=== PATIENT | male | born 1980 | race Caucasian/White ===

== ENCOUNTER 2021-06-09 18:55 | Emergency (ER) | payer BC, SELFPAY ==
[2021-06-09 18:56] VITALS: BP 144/89; PULSE 110; RESP 18; TEMP 37.1; O2SAT 94; BMI 30.8
--- NOTE | 2021-06-09 20:30 | EKG12_ITS ---
Test Reason : DYSRYTHMIA Blood Pressure : / mmHG Vent. Rate : 096 BPM Atrial Rate : 096 BPM P-R Int : 152 ms QRS Dur : 090 ms QT Int : 334 ms P-R-T Axes : 035 -16 015 degrees QTc Int : 421 ms Normal sinus rhythm Normal ECG Confirmed by IDANIA CARPIO, ALICIA ([id number]), editor sound BRENDA JIMENEZ ([id number]) on 06/13/2021 9:58:20 AM Referred By: VANESA Confirmed By:ALICIA EMERSON MD
--- NOTE | 2021-06-09 21:00 | RAD_ITS ---
STUDY: X-RAY CHEST REASON FOR EXAM: Male, 41 years old. sob TECHNIQUE: AP COMPARISON: None. FINDINGS: There are patchy parenchymal opacities predominantly in the central lungs with some extension into the right upper lobe and left lower lobe. There is no demonstrated pleural abnormality. Normal size heart. Normal mediastinum and bernarda. Normal visualized pulmonary arteries. Normal visualized aortic arch and descending thoracic aorta. Normal visualized thoracic spine. Normal visualized ribs, clavicles, and shoulders. There is no demonstrated abnormality of the visualized soft tissue structures of the upper abdomen. RAD/Chest 1 View (Portable) IMPRESSION: Bilateral perihilar infiltrates suggesting pneumonia Electronically Signed: Figueroa Lewis MD (Brooks) at 22:19 EDT , Service support ,
[2021-06-09 21:01] LABS: Absolute Lymphocyte Count 1.75 X10^3/uL (0.83-4.51); Absolute Neutrophil Count 3.4 X10^3/uL (2.0-7.7); Basophil# 0.02 X10^3/uL; Basophil% 0.4 % (0-1); Hematocrit 45.6 % (40-54); Hemoglobin 14.9 g/dL (13.0-16.5); Lymphocyte # 1.75 X10^3/ul (0.83-4.51); Mean Corp Hgb Conc 32.7 g/dL (32-36); Mean Corpuscular Hgb 27.3 pg (27.0-32.0); Mean Corpuscular Volume 83.7 fL (80-94); Mean Platelet Vol. 9.5 fl (6.2-12.0); Monocyte# 0.33 X10^3/uL; NRBC Flagged by Analyzer 0 % (0-5); Neutrophil # 3.36 X10^3/uL (2.7-7.7); Neutrophil % 61.4 % (47-70); Platelet Count 185 K/mm3 (150-450); RBC Distribution Width SD 39.7 fl (35.1-43.9); Red Blood Count 5.45 M/mm3 (4.6-6.2); White Blood Count 5.5 K/mm3 (4.4-11.0)
[2021-06-09 21:19] LABS: Anion Gap 5 (5-15); BUN 10 mg/dL (7-18); Calcium,Total 8.5 mg/dL (8.5-10.1); Chloride 106 mmol/L (98-107); Creatinine, Serum 0.91 mg/dL (0.70-1.30); EST Glomerular Filtration Rate 98 mL/min (>60); Est Glom Filt Rate - Afr Amer 119 mL/min (>60); Estimated Creatinine Clearance 126.71 ml/min; Glucose 129 mg/dL (74-106); Potassium 3.8 mmol/L (3.5-5.1); Sodium Level 137 mmol/L (136-145); Troponin-I HS 7 pg/mL (3.0-78.0)
[2021-06-09 21:23] LABS: D-Dimer Quantitative (DVT/PE) 0.52 FEU/ug/m (0.27-0.49)
--- NOTE | 2021-06-09 21:23 | ED.RN ---
Per lab DDimer 0.52, Dr. Rahman and CammyRN to be made aware by KELIN Ontiveros.
--- NOTE | 2021-06-09 21:58 | CT_ITS ---
STUDY: CTA CHEST REASON FOR EXAM: Male, 41 years old. elevated d dimer RADIATION DOSAGE (If Supplied By Facility): CTDIvol = ( 11.37 ) mGy, DLP = ( 499.38 ) mGycm TECHNIQUE: The examination was performed with the intravenous administration of IV 100mL Isovue-370. Post-processing of the angiographic images was performed, with multiplanar reformation and 3D reconstruction. Individualized dose optimization techniques were used for this CT. COMPARISON: None. FINDINGS: Normal enhancement of the main pulmonary artery and right and left pulmonary arteries. Normal enhancement of the bilateral peripheral pulmonary arteries. There is no demonstrated pulmonary embolism. Normal thoracic aorta and visualized great vessels. There is no demonstrated aortic dissection. Normal heart and pericardium. Normal mediastinum. Normal hilar regions. Normal visualized trachea and bronchi. The lungs are well expanded. Multilobar consolidative and groundglass opacities involving the bilateral upper lobes and bilateral lower lobes. No cavitating process. Normal pleura. Normal chest wall structures. Normal osseous structures. Normal visualized upper abdomen. CT/CTA Chest W/WO Contrast IMPRESSION: 1. No central or segmental pulmonary embolism. 2. Multifocal infiltrates with features commonly reported with COVID pneumonia. Electronically Signed: Figueroa Lewis MD (Brooks) at 22:52 EDT , Service support ,
--- NOTE | 2021-06-09 23:08 | ED.VIS.DYS ---
HPI History of Present Illness Chief Complaint: Cold Sx Informant: patient Narrative Narrative: 41-year-old male presenting with Covid symptoms which started approximately 7 days ago. Patient has had cough, fever, myalgias. He has shortness of breath. Denies diarrhea. He was tested for Covid on Friday and was positive. He does have sick contacts. He is not vaccinated for Covid [facility] Medical History no medical history Home Medications dexamethasone [Decadron] 6 mg PO DAILY #7 tab 06/09/21 [Rx Last Taken Unknown] Allergy/AdvReac Type Severity Reaction Status Date / Time No Known Allergies Allergy Verified 06/09/21 18:58 Surgical History no surgical history Social History Smoking Status: Never smoker ROS ROS ED Constitutional Constitutional ED: Reports fever(s) Eyes Eyes: Denies change in vision ENT ENT ED: Reports rhinorrhea; Denies sore throat Cardiovascular Cardiovascular: Denies chest pain or palpitations Respiratory/Chest Respiratory/Chest: Reports cough and dyspnea Gastrointestinal Gastrointestinal: Denies abdominal pain, diarrhea, nausea or vomiting Genitourinary Genitourinary ED: Denies dysuria Musculoskeletal Musculoskeletal: Reports myalgias Integumentary Denies rash Neurologic Neurologic: Denies headache(s) Psychiatric Psychiatric: Denies suicidal thoughts EXAM Physical Exam Const Vital Signs: 06/09/21 18:56 06/09/21 20:49 06/09/21 23:15 Temperature 98.7 F Temperature Source Temporal Pulse Rate 110 H 100 Respiratory Rate 18 20 H Respiratory Effort Normal Respiratory Depth Normal Respiratory Pattern Normal Blood Pressure 144/89 H 134/76 H Blood Pressure Mean 107 95 Pulse Ox 94 90 Oxygen Delivery Method Room Air Positive well nourished and well developed General Appearance ED: well developed HEENT Reports normocephalic and head/scalp atraumatic Eyes PERRL and EOMs intact bilaterally Neck supple General: Negative for tenderness Chest Wall inspection of chest normal Resp normal respiratory effort and clear to auscultation bilaterally Cardio regular rate and regular rhythm GI non-tender and non-distended Palpation: soft; Negative for guarding or rebound tenderness present no CVA tenderness Extremity normal to inspection Neuro oriented x3 Sensorium / Orientation: alert Psych mental status grossly normal Skin Rashes: no rashes MDM MDM MDM Narrative Medical decision making narrative: CBC, chemistries were obtained and are unremarkable. Troponin is negative. D-dimer elevated at 0.52. Chest x-ray read by myself and radiology shows bilateral perihilar infiltrates. CTA chest was obtained which shows no central or segmental PE, multifocal infiltrates commonly reported with Covid pneumonia. His ambulatory pulse ox is 90% on room air therefore he does not qualify for home O2. He was given Decadron and a prescription for Decadron. He declines monoclonal antibody referral. Advised to follow-up with primary care physician. He was given a pulse ox for home. Advised to return to ED for worsening complaints. Lab Data Attestation: I reviewed the patient's lab results. Labs: Laboratory Results - last 24 hr 06/09/21 06/09/21 06/09/21 20:54 20:54 20:54 WBC 5.5 RBC 5.45 Hgb 14.9 Hct 45.6 MCV 83.7 MCH 27.3 MCHC 32.7 RDW Std Deviation 39.7 RDW Coeff of Dario 13.0 Plt Count 185 MPV 9.5 Immature Gran % (Auto) 0.200 Neut % (Auto) 61.4 Lymph % (Auto) 32.0 [place] % (Auto) 6.0 Eos % (Auto) 0.0 Baso % (Auto) 0.4 Absolute Neuts (auto) 3.4 Absolute Lymphs (auto) 1.75 Nucleated RBC % 0 D-Dimer Quant (PE/DVT) 0.52 H* Sodium 137 Potassium 3.8 Chloride 106 Carbon Dioxide 26.0 Anion Gap 5 BUN 10 Creatinine 0.91 Estim Creat Clear Calc 126.71 Est GFR (MDRD) Af Amer 119 Est GFR (MDRD) Non-Af 98 BUN/Creatinine Ratio 11.0 Glucose 129 H Calcium 8.5 Troponin I High Sens 7 Radiography Chest X-Ray - ED: 1 View, Read by ED Physician and Read by Radiologist Diagnostic Testing: Radiology Impression Chest X-Ray 06/09/21 21:00 IMPRESSION: Bilateral perihilar infiltrates suggesting pneumonia Electronically Signed: Figueroa Lewis MD (Brooks) at 22:19 EDT , Service support , Chest CTA 06/09/21 21:58 IMPRESSION: 1. No central or segmental pulmonary embolism. 2. Multifocal infiltrates with features commonly reported with COVID pneumonia. Electronically Signed: Figueroa Lewis MD (Brooks) at 22:52 EDT , Service support , EKG Initial EKG: Attestation: I personally reviewed and interpreted this EKG as follows: Interpretation: Sinus Rhythm and No Acute Injury Pattern Discharge Plan Triage Chief Complaint: Cold Sx ED Provider: Alida Rahman Dx/Rx/DC Orders Clinical Impression: COVID-19 Instructions: Coronavirus Disease 2019 (COVID-19): Overview Prescriptions: New dexamethasone [Decadron] 6 mg tablet 6 mg PO DAILY Qty: 7 RF: 0 Primary Care Provider: Faustino Jauregui Referrals: Faustino Jauregui MD [Primary Care Provider] - Disposition Disposition: Home, Self Care
[2021-06-09 23:15] VITALS: BP 134/76; PULSE 100; RESP 20; O2SAT 90
[2021-06-10] MEDS: dexAMETHasone 4 MG Tablet 6 MG PO (00:06)
== END 2021-06-10 00:06 | disposition home or self-care (01) ==
PROVIDERS: Emergency Provider Emergency Medicine; PCP Dentist
DX: U07.1 COVID-19 (principal)
CPT/HCPCS: 71045; 71275; 80048; 84484; 85025; 85379; 93005; 99284; Q9967; A4216

== ENCOUNTER 2021-06-12 13:18 | Emergency (ER) | payer BC, SELFPAY ==
[2021-06-12] VITALS (7 sets, daily range): BP systolic 116–118; BP diastolic 73–74; PULSE 88–111; RESP 18–22; TEMP 36.2; O2SAT 84–94; BMI 30.8
--- NOTE | 2021-06-12 14:57 | EKG12_ITS ---
Test Reason : SOB Blood Pressure : / mmHG Vent. Rate : 096 BPM Atrial Rate : 096 BPM P-R Int : 148 ms QRS Dur : 084 ms QT Int : 340 ms P-R-T Axes : 040 -17 009 degrees QTc Int : 429 ms Normal sinus rhythm Normal ECG When compared with ECG of 09-JUN-2021 20:41, MANUAL COMPARISON REQUIRED, DATA IS UNCONFIRMED Confirmed by IDANIA CARPIO, ALICIA ([id number]), editor & co founder BRENDA JIMENEZ ([id number]) on 06/13/2021 11:11:08 AM Referred By: TYSON Confirmed By:ALICIA EMERSON MD
--- NOTE | 2021-06-12 15:03 | NURSING ---
NO OLD EKGS
--- NOTE | 2021-06-12 15:18 | RAD_ITS ---
STUDY: X-RAY CHEST REASON FOR EXAM: Male, 41 years old. Cough.Covid positive. TECHNIQUE: Single AP portable view of the chest. COMPARISON: Comparison is made with prior study 06/09/2021. FINDINGS: Since prior study, has been progressive infiltrate in the right upper and mid lung as well as in the left perihilar region. There is no demonstrated pleural abnormality. Normal size heart. Normal mediastinum and bernarda. Normal visualized pulmonary arteries. Normal visualized aortic arch and descending thoracic aorta. Normal visualized thoracic spine. Normal visualized ribs, clavicles, and shoulders. There is no demonstrated abnormality of the visualized soft tissue structures of the upper abdomen. RAD/Chest 1 View (Portable) IMPRESSION: Progressive bilateral pulmonary infiltrates. Electronically Signed: Chapincito Jay MD at 15:32 EDT , Service support ,
--- NOTE | 2021-06-12 15:22 | ED.VIS.DYS ---
HPI History of Present Illness Chief Complaint: Shortness of Breath Informant: patient Onset/Context/Timing Onset: Hours (Low pulse ox noted today and documented as low as 84% on one occasion 82% on a second occasion) and Days (Onset of illness 10 days ago) Context: gradual Timing: Continuous Quality: Positive for Dyspnea on exertion; Negative for Orthopnea and PND Current Severity: Mild Maximum Severity: Severe Worsened by: Exertion and Coughing Relieved by: Nothing Associated Symptoms cough, rhinorrhea, post nasal drip, fever, sore throat and clear sputum; Negative for ear pain, chills, sweats, white sputum, yellow sputum or green sputum Chest Pain: Positive for None Narrative Narrative: Patient is a 41-year-old male who had onset of symptoms 10 days ago with a positive Covid test 9 days ago who presents because pulse ox reading of 82 and 84% respectively at home. His pulse ox 84% here in the emergency department. He is presently on Decadron. He apparently did not qualify for monoclonal antibody therapy. He does complain of headache. Nuys photophobia, neck pain or neck stiffness. Does report change in taste. Rhinorrhea, congestion postnasal drainage. He does report cough. The cough is been not productive. Does report posttussive emesis. He denies diarrhea today. Is had intermittent vomiting and diarrhea. He does report myalgias arthralgias. No joint swelling. Denies rash. He does report intermittent headache. He states he was seen in the emergency department had a CTA to rule out pulmonary embolus. CTA was negative. PE Risk Factors: Negative for Cancer, OCP + Smoking + > 35, Prior DVT or PE, Recent immobilization, Recent surgery and Recent travel Prior similar symptoms: Yes Recent Illness/[facility]ospital[facility]: [facility] Medical History COVID-19 Home Medications dexamethasone 6 mg PO DAILY 06/12/21 [History Last Taken Unknown] Allergy/AdvReac Type Severity Reaction Status Date / Time No Known Allergies Allergy Verified 06/12/21 13:18 Social History (Updated 06/12/21 @ 15:[address] Raffy Pratt MD) household members: spouse Smoking Status: Never smoker alcohol intake: current alcohol intake frequency: holidays/special occasions only substance use type: does not use ROS ROS ED Constitutional Constitutional ED: Reports chills and fever(s) Eyes Eyes: Denies blurry vision, change in vision or diplopia ENT ENT ED: Reports rhinorrhea and sore throat; Denies ear pain Cardiovascular Cardiovascular: Reports racing heartbeat; Denies chest pain, orthopnea, palpitations or paroxysmal nocturnal dyspnea Respiratory/Chest Respiratory/Chest: Reports cough, dyspnea and dyspnea on exertion; Denies orthopnea or paroxysmal nocturnal dyspnea Gastrointestinal Gastrointestinal: Reports abdominal pain, diarrhea, nausea and vomiting; Denies melena Genitourinary Genitourinary ED: Denies dysuria, hematuria or urinary frequency Musculoskeletal Musculoskeletal: Denies arthralgias, back pain, myalgias or neck pain Integumentary Denies rash Neurologic Neurologic: Reports headache(s) and weakness; Denies paresthesias Endocrine Endocrinology: Denies polydipsia, polyphagia or polyuria Hematologic/Lymphatic Hematologic/Lymphatic: Denies easy bleeding or easy bruising Allergic/Immunologic Allergic/Immunologic ED: Denies mouth swelling or urticaria EXAM Physical Exam Const Vital Signs: 06/12/21 13:19 06/12/21 13:22 06/12/21 14:39 Temperature 97.1 F L Temperature Source Temporal Pulse Rate 111 H Respiratory Rate 22 H Respiratory Effort Short of Breath Respiratory Pattern Tachypnea Blood Pressure 116/74 Blood Pressure Mean 88 Pulse Ox 84 89 94 Oxygen Delivery Method Room Air Nasal Cannula Nasal Cannula Oxygen Flow Rate (L/min) 2 3 06/12/21 14:41 06/12/21 17:49 Temperature 97.1 F L Temperature Source Temporal Pulse Rate 111 H 88 Respiratory Rate 22 H 19 H Respiratory Effort Respiratory Pattern Blood Pressure 116/74 118/73 Blood Pressure Mean 88 88 Pulse Ox 94 92 Oxygen Delivery Method Nasal Cannula Nasal Cannula Oxygen Flow Rate (L/min) 3 3 Positive well nourished and well developed General Appearance ED: well developed and other Patient appears tachypneic. He is having mild respiratory distress. HEENT Reports TM's clear and dry mucous membranes atraumatic and trauma Tympanic Membrane ED: Yes TM's clear Mouth ED: Yes dry mucous membranes Mouth: dry mucous membranes Eyes PERRL and EOMs intact bilaterally General Eye ED: Negative for pale conjunctiva or scleral icterus Neck no lymphadenopathy, supple, no meningeal signs and no JVD Resp normal respiratory effort and clear to auscultation bilaterally Cardio regular rate, S1 normal heart sound, S2 normal heart sound and no murmurs Rate: tachycardic GI non-tender, non-distended and no masses Auscultation: normoactive bowel sounds Palpation: soft Back/Spine no CVA tenderness and normal to inspection Extremity normal to inspection General Extremety ED: Negative for edema or tenderness General Extremity: Negative for edema Neuro oriented x3, CN's II-XII intact bilaterally and no sensory deficits noted [place] Coma Scale: document GCS findings Obeys Commands Oriented Sensorium / Orientation: alert, oriented to person and oriented to place Motor Exam: strength 5/5 throughout Psych mental status grossly normal Skin no wounds Lesions: no lesions Rashes: no rashes MDM MDM MDM Narrative Medical decision making narrative: Clinically patient has Covid pneumonia. Work-up was undertaken to assess for endorgan dysfunction, renal injury, electrolyte abnormality in light of the vomiting diarrhea. Clinically appears dehydrated and a 500 cc fluid bolus was ordered. He was placed on oxygen. On 3 L patient did not go below 90% with activity. Patient was discharged to home with home oxygen for bilateral Covid pneumonia. Lab Data Attestation: I reviewed the patient's lab results. Labs: Laboratory Results - last 24 hr 06/12/21 06/12/21 06/12/21 15:17 15:17 15:17 WBC 9.2 RBC 5.38 Hgb 14.7 Hct 44.4 MCV 82.5 MCH 27.3 MCHC 33.1 RDW Std Deviation 39.6 RDW Coeff of Dario 13.0 Plt Count 302 MPV 8.9 Immature Gran % (Auto) 1.000 H Neut % (Auto) 66.4 Lymph % (Auto) 20.6 [place] % (Auto) 11.9 H Eos % (Auto) 0.0 Baso % (Auto) 0.1 Absolute Neuts (auto) 6.1 Absolute Lymphs (auto) 1.89 Nucleated RBC % 0 Sodium 139 Potassium 4.0 Chloride 105 Carbon Dioxide 25.0 Anion Gap 9 BUN 16 Creatinine 0.78 Estim Creat Clear Calc 147.83 Est GFR (MDRD) Af Amer 143 Est GFR (MDRD) Non-Af 118 BUN/Creatinine Ratio 20.6 H Glucose 97 Lactic Acid 1.1 Calcium 8.8 Total Bilirubin 0.50 AST 25 ALT 53 Alkaline Phosphatase 50 Total Protein 7.5 Albumin 3.0 L Globulin 4.5 H Albumin/Globulin Ratio 0.7 L Radiography Chest X-Ray - ED: 1 View (X-ray was interpreted by me as bilateral source of pneumonia which has progressed since prior x-ray.), Normal, Heart, Mediastinum and Bony Structures Diagnostic Testing: Radiology Impression Chest X-Ray 06/12/21 15:18 IMPRESSION: Progressive bilateral pulmonary infiltrates. Electronically Signed: Chapincito Jay MD at 15:32 EDT , Service support , EKG Initial EKG: Attestation: I personally reviewed and interpreted this EKG as follows: Interpretation: Sinus Rhythm (The EKG is normal with a ventricular rate of 96. AL interval is 148 ms. QS duration 84 ms. QT duration 3 and 40 ms. Welches is normal.) Discharge Plan Triage Chief Complaint: Shortness of Breath ED Provider: Raffy Pratt Dx/Rx/DC Orders Clinical Impression: Pneumonia due to 2019 novel coronavirus, Acute respiratory failure with hypoxia Instructions: Coronavirus Disease 2019 (COVID-19): Caring for Yourself or Others Prescriptions: No Action dexamethasone 2 mg tablet 6 mg PO DAILY RF: 0 Primary Care Provider: Faustino Jauregui Referrals: Faustino Jauregui MD [Primary Care Provider] - 10-14 Days if not better Activity Restrictions/Additional Instructions: 1. If you have trouble eating or drink anything return to the emergency department 2. If your pulse ox drops below 90% with activity return to the emergency department 3. If you have any concerns contact Dr. Jauregui Disposition Disposition: Home, Self Care
[2021-06-12 15:28] LABS: Absolute Lymphocyte Count 1.89 X10^3/uL (0.83-4.51); Absolute Neutrophil Count 6.1 X10^3/uL (2.0-7.7); Basophil# 0.01 X10^3/uL; Basophil% 0.1 % (0-1); Hematocrit 44.4 % (40-54); Hemoglobin 14.7 g/dL (13.0-16.5); Lymphocyte # 1.89 X10^3/ul (0.83-4.51); Lymphocyte % 20.6 % (19-41); Mean Corp Hgb Conc 33.1 g/dL (32-36); Mean Corpuscular Hgb 27.3 pg (27.0-32.0); Mean Corpuscular Volume 82.5 fL (80-94); Mean Platelet Vol. 8.9 fl (6.2-12.0); Monocyte# 1.09 X10^3/uL; Monocyte% 11.9 % (0-10); NRBC Flagged by Analyzer 0 % (0-5); Neutrophil # 6.08 X10^3/uL (2.7-7.7); Neutrophil % 66.4 % (47-70); Platelet Count 302 K/mm3 (150-450); RBC Distribution Width SD 39.6 fl (35.1-43.9); Red Blood Count 5.38 M/mm3 (4.6-6.2); White Blood Count 9.2 K/mm3 (4.4-11.0)
[2021-06-12 15:44] LABS: ALB/GLOB Ratio 0.7 RATIO (0.9-2.4); AST(SGOT) 25 U/L (15-37); Alanine Aminotransfer ALT/SGPT 53 U/L (16-61); Alkaline Phosphatase 50 U/L (45-117); Anion Gap 9 (5-15); BUN 16 mg/dL (7-18); BUN/Creat Ratio 20.6 RATIO (10-20); Calcium,Total 8.8 mg/dL (8.5-10.1); Chloride 105 mmol/L (98-107); Creatinine, Serum 0.78 mg/dL (0.70-1.30); EST Glomerular Filtration Rate 118 mL/min (>60); Est Glom Filt Rate - Afr Amer 143 mL/min (>60); Estimated Creatinine Clearance 147.83 ml/min; Globulin 4.5 g/dL (2.2-4.2); Glucose 97 mg/dL (74-106); Protein, Total 7.5 g/dL (6.4-8.2); Sodium Level 139 mmol/L (136-145)
[2021-06-12 15:56] LABS: Lactic Acid 1.1 mmol/L (0.4-1.9)
--- NOTE | 2021-06-12 18:24 | CM.ED ---
Addendum entered by Jasmin Damon 06/12/21 18:49: PHOENIX sent group email to [facility] [email or web address] advising patient was discharge home with home oxygen. PHOENIX updated the KELIN Prajapati that [facility] rep will call the patient to schedule time to come to the home. Plan: Home with oxygen. Jasmin LOWE Original Note: PHOENIX Note PHOENIX was advised by RN that patient needs home oxygen. RN completed O2 stats. MD signed paperwork for home oxygen. PHOENIX called Diara at [facility] to make referral for home oxygen. PHOENIX faxed referral information to [facility]. [facility] rep will call the patient at home at home. Plan: Home with home oxygen Jasmin LOWE
--- NOTE | 2021-06-13 15:19 | CASEMGMT ---
KELIN WOODRUFF ED COVID Home O2 Follow-up: This KELIN WOODRUFF contacted pt via phone for home O2 follow-up. Pt answered and states he is doing good. pt denies any sob. States he is wearing his Home O2 at 3l/min and his PO is 90-92%. Pt states he has not called Dr. Jauregui's office for f/u yet but states he will. Pt asked about weaning off O2. Instructed pt to call Dr. Jauregui's office for further direction regarding this. Instructed pt that his current PO is in the low end of normal and to ensure he maintains O2 at 3l/min until this is reading in the higher 90's. Pt states he continues to take the decadron as previously prescribed. States he is eating and drinking without difficulty. Educated pt on deep breathing exercises, prone position, and encouraging cough and expectoration of phlegm. Pt denies any further questions at this time. Jayden Flood RN CM
--- NOTE | 2021-06-15 11:36 | CASEMGMT ---
KELIN WOODRUFF ED COVID Home O2 Follow-up: This RN CM attempted to contact pt via phone for follow-up. Non-identifying voicemail was received a nondescript message was left requesting a return call. Jayden Flood RN CM
--- NOTE | 2021-06-18 10:43 | CASEMGMT ---
RN CM ED COVVA Home O2 Follow-up: This RN CM contacted pt via phone for follow-up. Pt states he is doing well and continues to wear his O2 at 3l/min. Pt reports his PO to be around 90% on 3l/min at rest. Pt states he has gone outside to walk his driveway and reports his PO to be 85-87% with this activity. Pt states he was not wearing his O2 during these walks. Encouraged pt to use the portable tank when ambulating outside. Pt states he was not able to get an appointment with Dr. Faustino Jauregui at the [facility] due to not getting responses when he called through their phone tree. Pt states he contacted [facility] and was able to get an appointment for 07/[address] Burdick. Pt states he would like to be seen sooner to help facilitate his return to work. 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 Education provided to pt regarding weaning of O2 when PO readings are in higher on the 3l/min and the need to keep PO in the 90's. Pt expressed understanding. This RN CM to contact Dr. Jauregui's office at [facility] to help facilitate a sooner appointment. Jayden Flood RN CM
--- NOTE | 2021-06-18 10:52 | CASEMGMT ---
This KELIN WOODRUFF attempted to contact the [facility] on pt's behalf. Voicemail received and message left requesting a return call. Jayden Flood RN CM
--- NOTE | 2021-06-18 11:27 | CASEMGMT ---
A return call from Meseret at the [facility] was obtained. Dr. Jacob Jauregui is not a physician of [facility] but they are able to schedule the patient for f/u on 06/27 at 0920 with their nurse practitioner. This RN CM communicated this appointment to pt who was agreeable. Pt's facesheet faxed to Meseret to communicate pt's demographics. Jayden Flood RN CM
--- NOTE | 2021-06-21 16:18 | CASEMGMT ---
KELIN WOODRUFF ED COVID Home O2 Follow-up: This KELIN WOODRUFF contacted pt via phone for discharge home O2 follow-up. Pt states he is doing well and states he is continuing to wear his O2. Pt reports his PO to be around 92%. Pt denies any difficulty breathing. Pt remains aware of his appointment next Friday and is looking forward to additional guidance related to returning to work and getting off of his O2. Pt denies any further questions or concerns. Jayden Flood RN CM
== END 2021-06-12 19:02 | disposition home or self-care (01) ==
PROVIDERS: Emergency Provider Emergency Medicine; PCP Dentist
DX: U07.1 COVID-19 (principal); J12.82 Pneumonia due to coronavirus disease 2019; J96.01 Acute respiratory failure with hypoxia; Z79.52 Long term (current) use of systemic steroids
CPT/HCPCS: 71045; 80053; 83605; 85025; 87040; 93005; 99284; A4216

== ENCOUNTER → 2021-06-27 11:35 | Outpatient (CLI) | payer BC, SELFPAY ==
--- NOTE | 2021-06-27 11:39 | RAD_ITS ---
STUDY: X-RAY CHEST REASON FOR EXAM: Male, 41 years old. POST COVID TECHNIQUE: PA and lateral views of the chest. COMPARISON: 06/12/2021 FINDINGS: The lungs are clear and expanded. There is no demonstrated pleural abnormality. Normal size heart. Normal mediastinum and bernarda. Normal visualized pulmonary arteries. Normal visualized aortic arch and descending thoracic aorta. Normal visualized thoracic spine. Normal visualized ribs, clavicles, and shoulders. There is no demonstrated abnormality of the visualized soft tissue structures of the upper abdomen. RAD/Chest PA and Lateral IMPRESSION: Normal x-ray examination of the chest. Electronically Signed: Anshu Zelaya MD at 9:38 EDT Tel , Service support ,
== END ==
PROVIDERS: PCP Dentist; Referring Provider Nurse Practitioner Adult Health; Visit Provider Nurse Practitioner Adult Health
DX: U09.9 Post COVID-19 condition, unspecified (principal)
CPT/HCPCS: 71046

== ENCOUNTER 2024-06-19 10:55 | Inpatient (IN) | payer OTHER, SELFPAY ==
[2024-06-19 10:55] VITALS: BP 147/88; PULSE 92; RESP 16; TEMP 36.5; O2SAT 99; BMI 31.4
--- NOTE | 2024-06-19 11:25 | RAD_ITS ---
HISTORY: pain, swelling. TECHNIQUE: XR Knee 1 or 2 Views. COMPARISON: None. FINDINGS: BONES : No acute fracture identified. Small bone island in the proximal tibia. JOINTS: No dislocation. Joint spaces maintained. SOFT TISSUES: Anterior soft tissue swelling. RAD/Knee 1 or 2 Views IMPRESSION: Anterior soft tissue swelling without acute osseous abnormality identified in the left knee. Electronically Signed: Erlinda nOeill MD at 13:11 EDT ,
--- NOTE | 2024-06-19 11:26 | ED.VIS.LOWEX ---
HPI History of Present Illness Chief Complaint: Lower Extremity Injury Informant: patient Narrative Narrative: Patient has had spontaneous onset of pain in his left knee for 2 to 3 days. However yesterday it started getting swollen, buckled a couple times he thinks as a result of the issue, not the other way around, and today he is having trouble lifting his foot off the bed when he is resting or sitting. He states it seems paralyzed and does not seem to be limited by pain. Very difficult to walk or go up or down stairs because of this. No major knee issues in the past. No fevers or chills. He has had gout in his foot before but never in the knee. Denies injury to explain any of this before it started. No systemic symptoms, no acute low back pain (although he has had some mild low back discomfort on the left for the last couple months that has waxed and waned), no numbness. He states he can do other movements except for extension at the knee. [facility] Medical History (Updated 06/19/24 @ 15:[address] Vidal Ritter MD) Cellulitis of left knee Gout COVID-19 Allergy/AdvReac Type Severity Reaction Status Date / Time No Known Allergies Allergy Verified 06/19/24 10:57 Social History household members: spouse Smoking Status: Never smoker alcohol intake: current alcohol intake frequency: holidays/special occasions only substance use type: does not use ROS ROS ED Constitutional Constitutional ED: Denies chills or fever(s) Musculoskeletal Musculoskeletal: Reports extremity pain; Denies back pain or neck pain Integumentary Denies Abrasions, rash or wounds Neurologic Neurologic: Reports weakness; Denies paresthesias EXAM Physical Exam Const Vital Signs: 06/19/24 10:55 06/19/24 15:27 Temperature 97.7 F L 96.9 F L Temperature Source Oral Pulse Rate 92 98 Respiratory Rate 16 16 Blood Pressure 147/88 H 97/67 Blood Pressure Mean 107 77 Pulse Ox 99 97 Oxygen Delivery Method Room Air Positive well nourished and well developed General Appearance ED: well developed and NAD Neck full ROM and supple Back/Spine normal ROM and normal to inspection Back/Spine Narrative: No midline tenderness. Normal inspection. No significant discomfort with range of motion. Straight leg raises are negative reproducing no radicular pain or numbness including cross straight leg raise. Extremity Extremity Narrative: Limited range of motion of the left knee due to pain. Tenderness anteriorly at the patella but no other bony tenderness. There is an effusion. There is no redness. The knee is slightly warmer than the surrounding areas but it is not hot. There is no sign of a skin infection or cellulitis or an abscess. He has a varicose vein at the medial aspect of the proximal calf that he states is chronic and at baseline. There is no palpable cords. He can fire his quads, but only partially and he cannot lift his foot off the bed and extend despite attempting, and he is NOT limited by pain it seems neurologic. When resting, the quadriceps muscle is nontender and soft, all compartments in thigh/lower leg nondistended. Normal sensation. Normal 2+/4 DP pulse. Neuro oriented x3, no focal motor deficits and no sensory deficits noted Neuro Narrative: Lower extremity reflexes are symmetric, 3+ patellar, 2+ ankle, no clonus bilateral. With performing patellar reflex of the left knee, he has significant transient pain either in the knee itself or at the quadriceps insertion. Sensorium / Orientation: alert Psych mental status grossly normal and thought process normal Skin no wounds Rashes: no rashes MDM MDM MDM Narrative Medical decision making narrative: 2 view knee x-ray on my interpretation shows a small effusion but no acute fractures and the patella is in normal position arguing against a patellar tendon or ligament rupture. This patient is having trouble firing his quadriceps. He is trying very hard and it twitches but barely. With normal reflexes, this is not likely an acute radiculopathy. Peripheral neuropathy versus myopathy are in the differential diagnosis, but why he would be having an acute painful swollen knee at the same time does not seem to make intuitive sense. I think he less likely has a septic arthritis given the fact that we can move his knee without severe pain, and he has history of gout and that certainly is more likely and in the differential diagnosis especially given that he is healthy and not a diabetic or IV drug user. Therefore he was amenable to doing an arthrocentesis which was done see the procedure note. That was sent for testing. Also sent blood test which show leukocytosis, elevated ESR and CRP, and elevated uric acid of 7.3. I reviewed the body fluid/synovial fluid analysis. There are only 123 white blood cells total, and negative for crystals. This argues against gout and septic arthritis. My bigger concern is that the patient is not able to fire his quadriceps. Unknown if this is due to patellar tendon rupture but the does not have patella baja on x-ray. Unsure the exact process here whether this is musculoskeletal/mechanical or neurologic or myopathic. Discussed with Dr. Vera with orthopedics who was gracious enough to come evaluate the patient and requests admission w/ hospitalist and IV antibiotics. Lab Data Attestation: I reviewed the patient's lab results. Labs: Laboratory Results - last 24 hr 06/19/24 06/19/24 11:35 12:35 WBC 13.1 H RBC 5.16 Hgb 14.1 Hct 43.2 MCV 83.7 MCH 27.3 MCHC 32.6 RDW Std Deviation 40.9 RDW Coeff of Dario 13.4 Plt Count 247 MPV 9.3 Immature Gran % (Auto) 0.400 Neut % (Auto) 71.7 H Lymph % (Auto) 19.2 [place] % (Auto) 6.9 Eos % (Auto) 1.5 Baso % (Auto) 0.3 Absolute Neuts (auto) 9.4 H Absolute Lymphs (auto) 2.50 Nucleated RBC % 0 ESR 7 Sodium 141 Potassium 3.8 Chloride 108 H Carbon Dioxide 28.0 Anion Gap 5 BUN 15 Creatinine 0.89 Estim Creat Clear Calc 143.41 Est GFR (MDRD) Af Amer 121 Est GFR (MDRD) Non-Af 100 BUN/Creatinine Ratio 16.9 Glucose 147 H Uric Acid 7.3 H Calcium 9.0 Total Creatine Kinase 208 C-React Prot Ext Range 26.70 H Fluid Source Cancelled Fluid Color Cancelled Fluid Appearance Cancelled Fluid WBC Cancelled Fluid RBC Cancelled Fluid Tot Cell Count Cancelled Fld Polynuclear WBCs # Cancelled Fld Polynuclear WBCs % Cancelled Fluid Mononuclear WBCs Cancelled Fld Mononuclear WBCs % Cancelled Fluid Neutrophils Cancelled Fluid Lymphocytes Cancelled Fluid Monocytes Cancelled Fluid Plasma Cells Cancelled Fluid Macrophages Cancelled Fld Mesothelial Cells Cancelled Fluid Other Cells Cancelled Fluid Crystals NO CRYSTALS SEEN Fluid Crystal Source SYNOVIAL Fl Crystal Path Review Will follow Fl Pathologist Comment Cancelled Fluid Comment 2 Cancelled Synovial Source L KNEE Synovial Color [place] Synovial Appearance Cloudy Synovial WBC 0.1330 H Synovial RBC 0.[address] Synovial Tot Cell Ct 0.1380 H Synov Polynuclear WBCs 0.025 Synov Mononuclear WBCs 0.108 Synovial Neutrophils 31 H Synovial Lymphocytes 24 Synovial Monocytes 45 Synovial Polynuclear % 18.8 Synovial Mononuclear % 81.[address] Comment May follow Radiography Diagnostic Testing: Clinical Impression(s) from Imaging Studies Knee X-Ray 06/19/24 11:25 IMPRESSION: Anterior soft tissue swelling without acute osseous abnormality identified in the left knee. Electronically Signed: Erlinda Oneill MD at 13:11 EDT , Management Discussion w/another healthcare provider: Hospitalist and Wet End Operator (ortho) Procedures Other Procedures Procedure(s): Arthrocentesis left knee: Locally anesthetized with 1.5 cc plain 1% lidocaine medial approach left knee while in almost full extension, prepped with isopropanol then chlorhexidine, sterile approach taken, after informed consent. Medial approach with 18-gauge needle, able to drain about 6 cc of straw-colored fluid with a positive string sign along with some traumatic blood mixed in with the fluid. Tolerated well no complications. Discharge Plan Triage Chief Complaint: Lower Extremity Injury ED Provider: Vidal Ritter Dx/Rx/DC Orders Clinical Impression: Acute pain of left knee, Weakness of left quadriceps muscle Prescriptions: No Action dexamethasone 2 mg tablet 6 mg PO DAILY Primary Care Provider: Care Physician,No Primary Referrals: NOT,DEFINED [Non-Staff] - Print Language: Thai Disposition Disposition: Acute [facility]
[2024-06-19 12:00] LABS: Erythrocyte Sedimentation Rate 7 mm/hr (0-20)
[2024-06-19 12:04] LABS: Absolute Neutrophil Count 9.4 X10^3/uL (2.0-7.7); Basophil# 0.04 X10^3/uL; Basophil% 0.3 % (0-1); Eosinophils% 1.5 % (0-5); Hematocrit 43.2 % (40-54); Hemoglobin 14.1 g/dL (13.0-16.5); Lymphocyte % 19.2 % (19-41); Mean Corp Hgb Conc 32.6 g/dL (32-36); Mean Corpuscular Hgb 27.3 pg (27.0-32.0); Mean Corpuscular Volume 83.7 fL (80-94); Mean Platelet Vol. 9.3 fl (6.2-12.0); Monocyte% 6.9 % (0-10); NRBC Flagged by Analyzer 0 % (0-5); Neutrophil # 9.36 X10^3/uL (2.7-7.7); Neutrophil % 71.7 % (47-70); Platelet Count 247 K/mm3 (150-450); RBC Distribution Width CV 13.4 % (11.6-14.6); RBC Distribution Width SD 40.9 fl (35.1-43.9); Red Blood Count 5.16 M/mm3 (4.6-6.2); White Blood Count 13.1 K/mm3 (4.4-11.0)
[2024-06-19 12:31] LABS: Anion Gap 5 (5-15); BUN 15 mg/dL (7-18); BUN/Creat Ratio 16.9 RATIO (10-20); Chloride 108 mmol/L (98-107); Creatinine, Serum 0.89 mg/dL (0.70-1.30); EST Glomerular Filtration Rate 100 mL/min (>60); Est Glom Filt Rate - Afr Amer 121 mL/min (>60); Estimated Creatinine Clearance 143.41 ml/min; Glucose 147 mg/dL (74-106); Potassium 3.8 mmol/L (3.5-5.1); Sodium Level 141 mmol/L (136-145); Uric Acid 7.3 mg/dL (3.5-7.2)
[2024-06-19] MEDS: Lidocaine 1% (20 ml mdv) 20 ML Vial 3 ML INFILT (12:45)
[2024-06-19 13:31] LABS: CPK Total, Creatine Kinase 208 U/L (39-308)
[2024-06-19 13:43] LABS: Appearance /Synovial Fluid Cloudy (CLEAR); CRYSTALS, BODY FLUID NO CRYSTALS SEEN; Color / Synovial Fluid Pink (Pale Yellow); Source / Synovial Fluid L KNEE; Source- Body Fluid SYNOVIAL
[2024-06-19 13:47] LABS: RBC /Synovial Fluid 0.011 10^6/uL (0); Synovial Fld Mononuclear WBC # 0.108 10^3/ul; Synovial Fld Mononuclear WBC % 81.2 %; Synovial Fld Polynuclear WBC # 0.025 10^3/uL; Synovial Fld Polynuclear WBC % 18.8 %
[2024-06-19 13:48] LABS: AUTO B FLUID DILUENT BKGD CT WBC <0.1 RBC <0.01 (W<.1,R<.01)
[2024-06-19 13:51] LABS: Body Fluid QC Type(s) BF1Q,BF2Q
[2024-06-19 15:05] LABS: Lymph 24 %; Monocyte /Synovial Fluid 45 %; Neutrophil 31 % (0-25)
[2024-06-19 15:27] VITALS: BP 97/67; PULSE 98; RESP 16; TEMP 36.1; O2SAT 97
--- NOTE | 2024-06-19 15:27 | CON.PCM.OR_ITS ---
HPI Consult Data Date of Consult: 06/19/24 HPI Narrative HPI Narrative: JACOB BROWN, is a 44 M who presents with L knee pain, swelling, weakness in the quads. 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 had gout in the past in the toe, but last time 3 years ago. no fevers, but some mild chills. no back pain, but did have an episode 6 months ago. no radicular pain. no numbness anywhere. was able to ambulate with straight leg. knee extension feels weak. no pop. no change to bowel or bladder, no loss control, no gualberto anal numbness. no drainage. does kneel on the knee, did that a few days ago. no other painful joints. no drugs, no ivdu, no alcohol or smoking. eats deer meat, but not recently. [place]. [facility] Medical History (Updated 06/19/24 @ 15:[address] Vidal Ritter MD) Cellulitis of left knee Gout COVID-19 Allergy/AdvReac Type Severity Reaction Status Date / Time No Known Allergies Allergy Verified 06/19/24 10:57 Social History household members: spouse Smoking Status: Never smoker alcohol intake: current alcohol intake frequency: holidays/special occasions only substance use type: does not use Vital Signs Vital Signs Vital Signs: 06/19/24 10:55 Temperature 97.7 F L Temperature Source Oral Pulse Rate 92 Respiratory Rate 16 Blood Pressure 147/88 H Blood Pressure Mean 107 Pulse Ox 99 Oxygen Delivery Method Room Air Weight Weight: 245 lb Body Mass Index (BMI) 31.4 Physical Exam Const alert, oriented x3, no apparent distress and well nourished General Appearance: cooperative and well developed Extremity normal capillary refill Extremity Narrative: L LE: no pain to hip or ankle. nvi. normal sensation to L2-s1 and throughout the foot on both sides. able to fire quads, strength 4--/5. able to SLR. mild warmth anterior knee, no fluctuance, 1+ effusion and some mild prepatellar swelling. pain, with flexion rom 0-35 active and passive. no pain with micro motion. small puncture from prior aspiration. no ligament instability acl, pcl, mcl or lcl. at 30 and 0. no defects or gaps at patellar tendon or quads. no hip pain. pain with light touch over anterior knee. strong ankle and toes function, mild weakness L5 hip abduction. Lab / Micro Data Attestation: I reviewed the patient's lab results. 06/19/24 11:35 06/19/24 11:35 Labs: Laboratory Results - last 24 hr 06/19/24 11:35: WBC 13.1 H, RBC 5.16, Hgb 14.1, Hct 43.2, MCV 83.7, MCH 27.3, MCHC 32.6, RDW Std Deviation 40.9, RDW Coeff of Dario 13.4, Plt Count 247, MPV 9.3, Immature Gran % (Auto) 0.400, Neut % (Auto) 71.7 H, Lymph % (Auto) 19.2, [place] % (Auto) 6.9, Eos % (Auto) 1.5, Baso % (Auto) 0.3, Absolute Neuts (auto) 9.4 H, Absolute Lymphs (auto) 2.50, Nucleated RBC % 0, ESR 7, Sodium 141, Potassium 3.8, Chloride 108 H, Carbon Dioxide 28.0, Anion Gap 5, BUN 15, Creatinine 0.89, Estim Creat Clear Calc 143.41, Est GFR (MDRD) Af Amer 121, Est GFR (MDRD) Non-Af 100, BUN/Creatinine Ratio 16.9, Glucose 147 H, Uric Acid 7.3 H , Calcium 9.0, Total Creatine Kinase 208, C-React Prot Ext Range 26.70 H 06/19/24 12:35: Fluid Source Cancelled, Fluid Color Cancelled, Fluid Appearance Cancelled, Fluid WBC Cancelled, Fluid RBC Cancelled, Fluid Tot Cell Count Cancelled, Fld Polynuclear WBCs # Cancelled, Fld Polynuclear WBCs % Cancelled, Fluid Mononuclear WBCs Cancelled, Fld Mononuclear WBCs % Cancelled, Fluid Neutrophils Cancelled, Fluid Lymphocytes Cancelled, Fluid Monocytes Cancelled, Fluid Plasma Cells Cancelled, Fluid Macrophages Cancelled, Fld Mesothelial Cells Cancelled, Fluid Other Cells Cancelled, Fluid Crystals NO CRYSTALS SEEN, Fluid Crystal Source SYNOVIAL, Fl Crystal Path Review Will follow, Fl Pathologist Comment Cancelled, Fluid Comment 2 Cancelled, Synovial Source L KNEE, Synovial Color [place], Synovial Appearance Cloudy, Synovial WBC 0.1330 H, Synovial RBC 0.011 H, Synovial Tot Cell Ct 0.1380 H, Synov Polynuclear WBCs 0.025, Synov Mononuclear WBCs 0.108, Synovial Neutrophils 31 H, Synovial Lymphocytes 24, Synovial Monocytes 45, Synovial Polynuclear % 18.8, Synovial Mononuclear % 81.2, Synovial Path Comment May follow Imaging Radiology Impression Knee X-Ray 06/19/24 11:25 IMPRESSION: Anterior soft tissue swelling without acute osseous abnormality identified in the left knee. Electronically Signed: Erlinda Oneill MD at 13:11 EDT , agree with rads, no fracture, soft tissue swelling. Assessment & Plan Assessment/Plan (1) Acute pain of left knee: PLAN: 44 yr M with left knee pain and swelling, mild warm, pain with light touch. Seems like a prepatellar infectious bursitis / cellulitis. Aspiration of the joint is fairly benign so do not think this is a septic joint or gout. Could it be a lyme disease / tick bite causing the neurologic symptoms? Will order lyme titers. Or a myopathy but CPK normal. Would suggest neurology, possible ID consult. Hospitalist on board. Plan to admit and start broad spectrum antibiotics for the knee, while following progression of the quads and hip weakness. Will get hip and back xrays to start and follow clinical progression. No tendon or ligament rupture, but quads muscle bulk seems less and mild atrophy. Patient agrees with plan. (2) Prepatellar bursitis, left knee: (3) Cellulitis of left knee:
--- NOTE | 2024-06-19 15:37 | RAD_ITS ---
STUDY: X-RAY - PELVIS AND LEFT HIP REASON FOR EXAM: Male, 44 years old. weakness TECHNIQUE: 3 views of the pelvis and hip. COMPARISON: None. FINDINGS: There is a non-specific bowel gas pattern. Normal visualized soft tissue structures. Normal bilateral iliac wings, sacroiliac joints and visualized sacrum. Normal bilateral superior and inferior pubic rami. Normal pubic symphysis. Normal bilateral ischial tuberosities. Normal visualized femoral head. Mild acetabular spurring. Normal hip joint. RAD/HIP, UNI W/ Pelvis 2-3 Views IMPRESSION: Early degenerative changes of the left hip. No acute fracture of the hip or pelvis Electronically Signed: Jeanmarie Serra MD at 16:31 EDT ,
--- NOTE | 2024-06-19 15:38 | RAD_ITS ---
STUDY: X-RAY - LUMBAR SPINE REASON FOR EXAM: Male, 44 years old. weakness TECHNIQUE: 4 view(s) of the lumbar spine were obtained with flexion and extension. COMPARISON: None FINDINGS: Normal lumbar lordosis. There is no substantial scoliosis. There is a normal alignment of the vertebrae. No evidence for acute fracture or subluxation. No lytic or sclerotic bony lesions . Mildly narrowed L4-5 disc space and anterior endplate spurring at L3-4. No gross instability upon flexion and extension The soft tissue structures are unremarkable. RAD/L/S Spine Bending Flex/Ext IMPRESSION: Mild spondylosis. No acute fracture or bony pathology Electronically Signed: Jeanmarie Serra MD at 16:34 EDT ,
--- NOTE | 2024-06-19 15:44 | NURSING ---
MED SURG AGYEPONG LEFT KNEE PAIN, QUADRICEPS, WEAKNESS
--- NOTE | 2024-06-19 16:00 | PCM.HP.STD ---
HPI - General General Date of Admission: 06/19/24 Date of Service: 06/19/24 Chief Complaint: left knee swelling HPI Narrative JACOB BROWN, is a 44 M with no significant past medical history who presents with left knee swelling that started 2 days prior to presentation. His pain worsens with any kind of movements of his left leg. Associated with symptoms is swelling of his left knee and inability to extend his left knee. His symptoms have been progressively worsening. 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 He denies any fever. Patient denies any trauma. At the emergency department, ED physician aspirated fluid from patient's joint for testing. Orthopedic was consulted at the ED and saw patient. PENDING SALE TO [facility] Medical History (Updated 06/19/24 @ 16:[address] Calvin Daniels MD) Cellulitis of left knee Gout COVID-19 Allergy/AdvReac Type Severity Reaction Status Date / Time No Known Allergies Allergy Verified 06/19/24 10:57 Family History (Updated 06/19/24 @ 16:[address] Calvin Daniels MD) Other Heart disease Surgical History no surgical history no surgical history Social History household members: spouse Smoking Status: Never smoker alcohol intake: current alcohol intake frequency: holidays/special occasions only substance use type: does not use ROS ROS Narrative Pertinent positives and pertinent negatives as noted in HPI. All other systems were reviewed and are negative Vital Signs Vital Signs Vital Signs: 06/19/24 10:55 06/19/24 15:27 Temperature 97.7 F L 96.9 F L Temperature Source Oral Pulse Rate 92 98 Respiratory Rate 16 16 Blood Pressure 147/88 H 97/67 Blood Pressure Mean 107 77 Pulse Ox 99 97 Oxygen Delivery Method Room Air Weight Weight: 111.13 kg Body Mass Index (BMI) 31.4 Physical Exam Narrative Physical exam: General: Well-nourished, well-developed. Head: Normocephalic, atraumatic, no tenderness Eyes: Vision is grossly intact. EOMI ENT, no trauma, moist mucous membranes, no rhinorrhea Neck: Nontender, No thyromegaly. CVS: Regular rate and rhythm. S1-S2 present. No murmur, gallop or rub. Respiratory : clear to auscultation bilaterally, chest wall nontender Abdomen: Soft, nontender, nondistended, normal bowel sounds, no masses : Deferred Back: Nontender, no CVA tenderness, no midline spinal tenderness, deformities, step-offs Extremities: Swelling and tenderness of left knee. Varicose veins of left knee (chronic). Right knee with no swelling or tenderness Skin: Normal color, no trauma, abrasions Neuro: Alert, oriented, cranial nerves II through XII grossly intact. Psychiatry: Normal mood. Normal affect. Not depressed. Not anxious. Results Lab / Micro Data 06/19/24 11:35 06/19/24 11:35 Labs: Laboratory Results - last 24 hr 06/19/24 11:35: WBC 13.1 H, RBC 5.16, Hgb 14.1, Hct 43.2, MCV 83.7, MCH 27.3, MCHC 32.6, RDW Std Deviation 40.9, RDW Coeff of Dario 13.4, Plt Count 247, MPV 9.3, Immature Gran % (Auto) 0.400, Neut % (Auto) 71.7 H, Lymph % (Auto) 19.2, [place] % (Auto) 6.9, Eos % (Auto) 1.5, Baso % (Auto) 0.3, Absolute Neuts (auto) 9.4 H, Absolute Lymphs (auto) 2.50, Nucleated RBC % 0, ESR 7, Sodium 141, Potassium 3.8, Chloride 108 H, Carbon Dioxide 28.0, Anion Gap 5, BUN 15, Creatinine 0.89, Estim Creat Clear Calc 143.41, Est GFR (MDRD) Af Amer 121, Est GFR (MDRD) Non-Af 100, BUN/Creatinine Ratio 16.9, Glucose 147 H, Uric Acid 7.3 H, Calcium 9.0, Total Creatine Kinase 208, C-React Prot Ext Range 26.70 H 06/19/24 12:35: Fluid Source Cancelled, Fluid Color Cancelled, Fluid Appearance Cancelled, Fluid WBC Cancelled, Fluid RBC Cancelled, Fluid Tot Cell Count Cancelled, Fld Polynuclear WBCs # Cancelled, Fld Polynuclear WBCs % Cancelled, Fluid Mononuclear WBCs Cancelled, Fld Mononuclear WBCs % Cancelled, Fluid Neutrophils Cancelled, Fluid Lymphocytes Cancelled, Fluid Monocytes Cancelled, Fluid Plasma Cells Cancelled, Fluid Macrophages Cancelled, Fld Mesothelial Cells Cancelled, Fluid Other Cells Cancelled, Fluid Crystals NO CRYSTALS SEEN, Fluid Crystal Source SYNOVIAL, Fl Crystal Path Review Will follow, Fl Pathologist Comment Cancelled, Fluid Comment 2 Cancelled, Synovial Source L KNEE, Synovial Color [place], Synovial Appearance Cloudy, Synovial WBC 0.1330 H, Synovial RBC 0.011 H, Synovial Tot Cell Ct 0.1380 H, Synov Polynuclear WBCs 0.025, Synov Mononuclear WBCs 0.108, Synovial Neutrophils 31 H, Synovial Lymphocytes 24, Synovial Monocytes 45, Synovial Polynuclear % 18.8, Synovial Mononuclear % 81.2, Synovial Path Comment May follow Imaging Radiology Impression Knee X-Ray 06/19/24 11:25 IMPRESSION: Anterior soft tissue swelling without acute osseous abnormality identified in the left knee. Electronically Signed: Erlinda Oneill MD at 13:11 EDT , Assessment & Plan Assessment/Plan (1) Weakness of left quadriceps muscle: (2) Cellulitis of left knee: (3) Prepatellar bursitis, left knee: (4) Acute pain of left knee: PLAN: Plan Case was discussed with ED physician and orthopedic surgeon who was at the ED. Consensus to treat patient for possible cellulitis of left knee. Septic arthritis is less likely. ED physician was going to start patient on cefazolin. I recommended vancomycin and ceftriaxone to begin and later antibiotics can be de-escalated. Less likely neuro as patient has pain. Labs reviewed. Noted neutrophilic leukocytosis. Mildly elevated uric acid. Synovial fluid with no crystals. Synovial fluid with elevated cells. Left knee x-ray with anterior knee swelling. No fracture. Knee x-ray was independently interpreted, agrees with radiology interpretation. Trend CBC and BMP. Pain control as needed oxycodone. Physical therapy to evaluate and treat DVT prophylaxis subcutaneous Lovenox. Advance care planning: Discussed with patient and family advanced directives as well as CODE STATUS. Explained various CODE STATUS: FULL CODE, DNR CCA, DNR CCA with no intubation, and DNR CC- and what each meant. Patient elected to be a full code with CPR and intubation if warranted. Order was placed. Surrogate decision maker is patient's . Time spent on discussion 16 minutes. Time spent in the patient's overall evaluation,decision-making process, review of diagnostic data, adjustment of management, discussion with other providers, nursing and ancillary staff involved in patient's care documentation, 70 minutes. Charges/Coding Visit Charges Inpatient E&M: 36070 Init Hosp L3 Procedures Hospitalists Procedures: 42141 Advncd Care Plan 30 Min
[2024-06-19 16:35] VITALS: BP 140/97; PULSE 88; RESP 16; TEMP 37.1; O2SAT 99; BMI 31.4
[2024-06-19] MEDS: Ceftriaxone 1 GM/50 ML BAG IV (17:55)
[2024-06-19] MEDS: 0.9% Normal Saline (250mL Bag) 250 ML 15 ML IV (17:58)
[2024-06-19] MEDS: Vancomycin HCl 2,000 MG in 0.9% Normal Saline (500mL Bag) 500 ML 250 MG IV (18:38)
[2024-06-19] MEDS: Ibuprofen 600 MG Tablet PO (19:06)
[2024-06-19 20:12] VITALS: BP 141/86; PULSE 99; RESP 18; TEMP 36.4; O2SAT 99
--- NOTE | 2024-06-19 20:40 | PCM.RX.CS ---
Consult Antibiotic Management Pharmacy has been consulted to manage selected antibiotic: Vancomycin Type of Intervention Type of Consult: New start Labs Labs: Sodium 141 mmol/L (136-145) 06/19/24 11:35 Potassium 3.8 mmol/L (3.5-5.1) 06/19/24 11:35 Chloride 108 mmol/L (98-107) H 06/19/24 11:35 Carbon Dioxide 28.0 mmol/L (21.0-32.0) 06/19/24 11:35 Anion Gap 5 (5-15) 06/19/24 11:35 BUN 15 mg/dL (7-18) 06/19/24 11:35 Creatinine 0.89 mg/dL (0.70-1.30) 06/19/24 11:35 Est GFR (MDRD) Af Amer 121 mL/min (>60) 06/19/24 11:35 Est GFR (MDRD) Non-Af 100 mL/min (>60) 06/19/24 11:35 BUN/Creatinine Ratio 16.9 RATIO (10-20) 06/19/24 11:35 Glucose 147 mg/dL (74-106) H 06/19/24 11:35 Dosing Weight Weight used for dosin.13 kg Estimated Creatinine Clearance Estimated Creatinine Clearance: 143.4 Goal Trough Goal Trough: 15-20 mcg/mL Pharmacy Plan for Drug Dosing Pharmacy Plan for Drug Dosing: Pharmacy Service will continue to monitor and adjust dosing as required. 2GM IN GIVEN IN ER. 1500MG Q8H TROUGH PRIOR TO 4TH DOSE Follow-Up Labs Follow-Up Labs: Trough: Vancomycin Date/Time Labs Ordered Labs to be done on [date and time ordered]: 06/20 @ 1800
[2024-06-20] MEDS: Ibuprofen 600 MG Tablet PO ×2 (00:52→14:21)
[2024-06-20 02:15] VITALS: BP 138/78; PULSE 78; RESP 16; TEMP 36.6; O2SAT 97
[2024-06-20] MEDS: Vancomycin HCl 1,500 MG in 0.9% Normal Saline (500mL Bag) 500 ML 250 MG IV ×3 (02:39→18:40)
--- NOTE | 2024-06-20 07:01 | PCM.PN.HOSP ---
Reason for Visit Reason for Visit: Diagnoses Cellulitis of left lower limb (06/19/24) Pain in left knee (06/19/24) Muscle weakness (generalized) (06/19/24) Prepatellar bursitis, left knee (06/19/24) Subjective Subjective 44-year-old gentleman who presented with left knee swelling and assessment of cellulitis was made admitted to regular nursing floor for further management Objective Data Objective Data Vital Signs: Vital Signs Temp Pulse Resp BP Pulse Ox O2 Del Method 97.8 F 78 16 138/78 H 97 Room Air 06/20/24 02:15 06/20/24 02:15 06/20/24 02:15 06/20/24 02:15 06/20/24 02:15 06/20/24 02:15 Oxygen Delivery Method Room Air Weight: 111.13 kg Body Mass Index (BMI) 31.4 Intake & Output: Intake and Output for Last 24 Hours 06/18/24 06/19/24 06/20/24 23:59 23:59 23:59 Intake Total 590 / 590 530 / 530 Balance 590 / 590 530 / 530 Lab / Micro Data 06/20/24 06:35 06/20/24 06:35 Labs: Laboratory Results - last 24 hr 06/19/24 11:35: WBC 13.1 H, RBC 5.16, Hgb 14.1, Hct 43.2, MCV 83.7, MCH 27.3, MCHC 32.6, RDW Std Deviation 40.9, RDW Coeff of Dario 13.4, Plt Count 247, MPV 9.3, Immature Gran % (Auto) 0.400, Neut % (Auto) 71.7 H, Lymph % (Auto) 19.2, [place] % (Auto) 6.9, Eos % (Auto) 1.5, Baso % (Auto) 0.3, Absolute Neuts (auto) 9.4 H, Absolute Lymphs (auto) 2.50, Nucleated RBC % 0, ESR 7, Sodium 141, Potassium 3.8, Chloride 108 H, Carbon Dioxide 28.0, Anion Gap 5, BUN 15, Creatinine 0.89, Estim Creat Clear Calc 143.41, Est GFR (MDRD) Af Amer 121, Est GFR (MDRD) Non-Af 100, BUN/Creatinine Ratio 16.9, Glucose 147 H, Uric Acid 7.3 H, Calcium 9.0, Total Creatine Kinase 208, C-React Prot Ext Range 26.70 H 06/19/24 12:35: Fluid Source Cancelled, Fluid Color Cancelled, Fluid Appearance Cancelled, Fluid WBC Cancelled, Fluid RBC Cancelled, Fluid Tot Cell Count Cancelled, Fld Polynuclear WBCs # Cancelled, Fld Polynuclear WBCs % Cancelled, Fluid Mononuclear WBCs Cancelled, Fld Mononuclear WBCs % Cancelled, Fluid Neutrophils Cancelled, Fluid Lymphocytes Cancelled, Fluid Monocytes Cancelled, Fluid Plasma Cells Cancelled, Fluid Macrophages Cancelled, Fld Mesothelial Cells Cancelled, Fluid Other Cells Cancelled, Fluid Crystals NO CRYSTALS SEEN, Fluid Crystal Source SYNOVIAL, Fl Crystal Path Review Will follow, Fl Pathologist Comment Cancelled, Fluid Comment 2 Cancelled, Synovial Source L KNEE, Synovial Color [place], Synovial Appearance Cloudy, Synovial WBC 0.1330 H, Synovial RBC 0.011 H, Synovial Tot Cell Ct 0.1380 H, Synov Polynuclear WBCs 0.025, Synov Mononuclear WBCs 0.108, Synovial Neutrophils 31 H, Synovial Lymphocytes 24, Synovial Monocytes 45, Synovial Polynuclear % 18.8, Synovial Mononuclear % 81.2, Synovial Path Comment May follow Micro: Microbiology 06/19/24 12:35 Fluid - Synovial (joint) Gram Stain - Final Radiography Diagnostic Testing: Radiology Impression Knee X-Ray 06/19/24 11:25 IMPRESSION: Anterior soft tissue swelling without acute osseous abnormality identified in the left knee. Electronically Signed: Erlinda Oneill MD at 13:11 EDT , Hip/Pelvis X-Ray 06/19/24 15:37 IMPRESSION: Early degenerative changes of the left hip. No acute fracture of the hip or pelvis Electronically Signed: Jeanmarie Serra MD at 16:31 EDT , Lumbar Spine X-Ray 06/19/24 15:38 IMPRESSION: Mild spondylosis. No acute fracture or bony pathology Electronically Signed: Jeanmarie Serra MD at 16:34 EDT , Physical Exam Narrative GENERAL: cooperative HEENT: Atraumatic; normocephalic EYES; Anicteric, Normal Conjunctiva NECK; supple, normal thyroid, RESPIRATORY: Diminished to auscultation CARDIOVASCULAR: Regular S1 S2, GI: soft, normoactive bowel sounds, : No Renal angle tenderness; EXTREMITIES: No edema, no clubbing, MUSCULOSKELETAL: Left knee swelling with erythema NEURO: Awake; no lateralizing signs. SKIN: No Rash PSYCH; Flat affect Assessment & Plan Assessment/Plan (1) Weakness of left quadriceps muscle: (2) Cellulitis of left knee: (3) Prepatellar bursitis, left knee: (4) Acute pain of left knee: PLAN: Plan 44-year-old gentleman who presented with left knee swelling and assessment of cellulitis was made admitted to regular nursing floor for further management 1. Left knee cellulitis ? Patient was started on Vanco and ceftriaxone cultures sent. Orthopedic surgery had been consulted in the ED. Patient was seen and evaluated by Dr. Gavin Cantor in his notes and recommendations reviewed 2. Class I obesity with BMI of 31.5 ? Weight loss advised 3. DVT prophylaxis ? On enoxaparin Time spent in the patient's overall evaluation,decision-making process, review of diagnostic data, adjustment of management, discussion with other providers, nursing nursing and ancillary staff involved in patient's care documentation, 36 minutes Charges/Coding Visit Charges Inpatient E&M: 15014 Subs Hosp L2
[2024-06-20 07:20] LABS: Absolute Lymphocyte Count 3.23 X10^3/uL (0.83-4.51); Absolute Neutrophil Count 6.8 X10^3/uL (2.0-7.7); Basophil# 0.04 X10^3/uL; Basophil% 0.4 % (0-1); Eosinophil# 0.29 X10^3/uL; Eosinophils% 2.5 % (0-5); Lymphocyte # 3.23 X10^3/ul (0.83-4.51); Lymphocyte % 28.4 % (19-41); Mean Corp Hgb Conc 32.6 g/dL (32-36); Mean Corpuscular Hgb 27.4 pg (27.0-32.0); Mean Corpuscular Volume 84.1 fL (80-94); Mean Platelet Vol. 9.1 fl (6.2-12.0); Monocyte% 8.8 % (0-10); NRBC Flagged by Analyzer 0 % (0-5); Neutrophil # 6.75 X10^3/uL (2.7-7.7); Neutrophil % 59.3 % (47-70); Platelet Count 246 K/mm3 (150-450); RBC Distribution Width CV 13.5 % (11.6-14.6); Red Blood Count 5.11 M/mm3 (4.6-6.2); White Blood Count 11.4 K/mm3 (4.4-11.0)
[2024-06-20 07:40] LABS: Anion Gap 3 (5-15); BUN 11 mg/dL (7-18); Calcium,Total 8.8 mg/dL (8.5-10.1); Chloride 115 mmol/L (98-107); Creatinine, Serum 0.79 mg/dL (0.70-1.30); EST Glomerular Filtration Rate 115 mL/min (>60); Est Glom Filt Rate - Afr Amer 139 mL/min (>60); Estimated Creatinine Clearance 161.56 ml/min; Glucose 106 mg/dL (74-106); Potassium 4.2 mmol/L (3.5-5.1); Sodium Level 142 mmol/L (136-145)
[2024-06-20 07:42] VITALS: O2SAT 95
[2024-06-20 10:20] VITALS: BP 143/85; PULSE 72; RESP 18; TEMP 36.7; O2SAT 97
[2024-06-20] MEDS: Ceftriaxone 1 GM/50 ML BAG IV (10:25)
--- NOTE | 2024-06-20 10:44 | PN.ORTHO_ITS ---
Subjective Subjective no change to the weakness. Still pain in the anterior aspect of the left knee. The hip is strong the quadriceps are weak. Patient is able to ambulate with a straight leg. No fevers chills or change overnight. The patient has been on vancomycin now no back pain. No change to bowel or bladder. Patient did let me know that his brother about 4 years ago had bilateral leg weakness he thinks it is attributed to a vaccine and walks with a walker now and was having difficulty urinating sounds to be a neurologic condition. Objective Data Objective Data Vital Signs: Vital Signs Temp Pulse Resp BP Pulse Ox O2 Del Method 98.1 F 72 18 143/85 H 97 Room Air 06/20/24 10:20 06/20/24 10:20 06/20/24 10:20 06/20/24 10:20 06/20/24 10:20 06/20/24 10:20 Oxygen Delivery Method Room Air Weight: 245 lb Body Mass Index (BMI) 31.4 Intake & Output: Intake and Output for Last 24 Hours 06/18/24 06/19/24 06/20/24 23:59 23:59 23:59 Intake Total 590 / 590 530 / 530 Balance 590 / 590 530 / 530 Lab / Micro Data Attestation: I reviewed the patient's lab results. 06/20/24 06:35 06/20/24 06:35 Labs: Laboratory Results - last 24 hr 06/19/24 11:35: WBC 13.1 H, RBC 5.16, Hgb 14.1, Hct 43.2, MCV 83.7, MCH 27.3, MCHC 32.6, RDW Std Deviation 40.9, RDW Coeff of Dario 13.4, Plt Count 247, MPV 9.3, Immature Gran % (Auto) 0.400, Neut % (Auto) 71.7 H, Lymph % (Auto) 19.2, [place] % (Auto) 6.9, Eos % (Auto) 1.5, Baso % (Auto) 0.3, Absolute Neuts (auto) 9.4 H, Absolute Lymphs (auto) 2.50, Nucleated RBC % 0, ESR 7, Sodium 141, Potassium 3.8, Chloride 108 H, Carbon Dioxide 28.0, Anion Gap 5, BUN 15, Creatinine 0.89, Estim Creat Clear Calc 143.41, Est GFR (MDRD) Af Amer 121, Est GFR (MDRD) Non-Af 100, BUN/Creatinine Ratio 16.9, Glucose 147 H, Uric Acid 7.3 H , Calcium 9.0, Total Creatine Kinase 208, C-React Prot Ext Range 26.70 H 06/19/24 12:35: Fluid Source Cancelled, Fluid Color Cancelled, Fluid Appearance Cancelled, Fluid WBC Cancelled, Fluid RBC Cancelled, Fluid Tot Cell Count Cancelled, Fld Polynuclear WBCs # Cancelled, Fld Polynuclear WBCs % Cancelled, Fluid Mononuclear WBCs Cancelled, Fld Mononuclear WBCs % Cancelled, Fluid Neutrophils Cancelled, Fluid Lymphocytes Cancelled, Fluid Monocytes Cancelled, Fluid Plasma Cells Cancelled, Fluid Macrophages Cancelled, Fld Mesothelial Cells Cancelled, Fluid Other Cells Cancelled, Fluid Crystals NO CRYSTALS SEEN, Fluid Crystal Source SYNOVIAL, Fl Crystal Path Review Will follow, Fl Pathologist Comment Cancelled, Fluid Comment 2 Cancelled, Synovial Source L KNEE, Synovial Color [place], Synovial Appearance Cloudy, Synovial WBC 0.1330 H, Synovial RBC 0.011 H, Synovial Tot Cell Ct 0.1380 H, Synov Polynuclear WBCs 0.025, Synov Mononuclear WBCs 0.108, Synovial Neutrophils 31 H, Synovial Lymphocytes 24, Synovial Monocytes 45, Synovial Polynuclear % 18.8, Synovial Mononuclear % 81.2, Synovial Path Comment May follow 06/20/24 06:35: WBC 11.4 H, RBC 5.11, Hgb 14.0, Hct 43.0, MCV 84.1, MCH 27.4, MCHC 32.6, RDW Std Deviation 42.0, RDW Coeff of Dario 13.5, Plt Count 246, MPV 9.1, Immature Gran % (Auto) 0.600, Neut % (Auto) 59.3, Lymph % (Auto) 28.4, [place] % (Auto) 8.8, Eos % (Auto) 2.5, Baso % (Auto) 0.4, Absolute Neuts (auto) 6.8, Absolute Lymphs (auto) 3.23, Nucleated RBC % 0, Sodium 142, Potassium 4.2, C hloride 115 H, Carbon Dioxide 24.0, Anion Gap 3 L, BUN 11, Creatinine 0.79, Estim Creat Clear Calc 161.56, Est GFR (MDRD) Af Amer 139, Est GFR (MDRD) Non-Af 115, BUN/Creatinine Ratio 14.0, Glucose 106, Calcium 8.8 Micro: Microbiology 06/19/24 12:35 Fluid - Synovial (joint) Gram Stain - Final 06/19/24 12:35 Fluid - Synovial (joint) Body Fluid Culture - Preliminary No growth-Final to follow Radiography Diagnostic Testing: Radiology Impression Knee X-Ray 06/19/24 11:25 IMPRESSION: Anterior soft tissue swelling without acute osseous abnormality identified in the left knee. Electronically Signed: Erlinda Oneill MD at 13:11 EDT , Hip/Pelvis X-Ray 06/19/24 15:37 IMPRESSION: Early degenerative changes of the left hip. No acute fracture of the hip or pelvis Electronically Signed: Jeanmarie Serra MD at 16:31 EDT , Lumbar Spine X-Ray 06/19/24 15:38 IMPRESSION: Mild spondylosis. No acute fracture or bony pathology Electronically Signed: Jeanmarie Serra MD at 16:34 EDT , Physical Exam Narrative No change to the physical exam. No back pain lumbar spine appears normal no pain to palpation. Abductors are strong quadriceps is weak. Strong dorsiflexion and plantarflexion of the ankle. The quads fire but quite weakly. Normal sensation to lower extremities. Foot is warm well-perfused still some mild swelling and warmth to the anterior aspect of left knee. Const alert and oriented x3 Assessment & Plan Assessment/Plan (1) Weakness of left quadriceps muscle: PLAN: 44-year-old man with left knee pain and swelling. The antibiotics I would recommend continuing IV antibiotics and monitoring white cell count and inflammatory markers to see the clinical and lab response to the antibiotics. Keep in hospital for now. In addition for the left quadriceps weakness at this point I would suggest getting a neurology consult and nerve studies as an initial diagnostic test for bilateral lower extremities if the hospitalist could arrange for that I would greatly appreciate this. (could be an inherited pre disposition? given his brothers profound leg weakness after a vaccine apparently pt states was NOT gillain barre) In the meantime I will follow for the knee infection. (2) Cellulitis of left knee: (3) Prepatellar bursitis, left knee: (4) Acute pain of left knee:
[2024-06-20 15:10] VITALS: BP 138/74; PULSE 96; RESP 18; TEMP 36.9; O2SAT 95
[2024-06-20] MEDS: Acetaminophen 325 MG Tablet 650 MG PO (16:39)
[2024-06-20 18:16] LABS: Vancomycin, Trough Level 15.4 ug/mL (5.0-15.0)
--- NOTE | 2024-06-20 18:26 | PCM.RX.CS ---
Consult Antibiotic Management Pharmacy has been consulted to manage selected antibiotic: Vancomycin Type of Intervention Type of Consult: Follow-up Suspected Infection Suspected Infection: Other Labs Labs: Sodium 142 mmol/L (136-145) 06/20/24 06:35 Potassium 4.2 mmol/L (3.5-5.1) 06/20/24 06:35 Chloride 115 mmol/L (98-107) H 06/20/24 06:35 Carbon Dioxide 24.0 mmol/L (21.0-32.0) 06/20/24 06:35 Anion Gap 3 (5-15) L 06/20/24 06:35 BUN 11 mg/dL (7-18) 06/20/24 06:35 Creatinine 0.79 mg/dL (0.70-1.30) 06/20/24 06:35 Est GFR (MDRD) Af Amer 139 mL/min (>60) 06/20/24 06:35 Est GFR (MDRD) Non-Af 115 mL/min (>60) 06/20/24 06:35 BUN/Creatinine Ratio 14.0 RATIO (10-20) 06/20/24 06:35 Glucose 106 mg/dL (74-106) 06/20/24 06:35 Vancomycin Trough 15.4 ug/mL (5.0-15.0) H 06/20/24 17:37 Microbiology Microbiology: Microbiology 06/19/24 12:35 Fluid - Synovial (joint) Gram Stain - Final 06/19/24 12:35 Fluid - Synovial (joint) Body Fluid Culture - Preliminary No growth-Final to follow Goal Trough Goal Trough: 15-20 mcg/mL Pharmacy Plan for Drug Dosing Pharmacy Plan for Drug Dosing: VANCOMYCIN LEVEL RECEIVED Current Vancomycin Dose: 1500mg q8h (at 0230, 1030, 1830) Number of Doses Received: x1 2000mg loading dose, x2 1500mg doses Vancomycin Level: 15.4 (drawn 06/20 at 1737) Hours Since Last Dose: 6.5 hours since last 1500mg dose on 06/20 at 1116 Renal Function: SrCr 0.79 Renal Function Trend: SrCr decreasing (was 0.89 on 06/19/24) Lab/Micro: Vancomycin Plan/Comments: resulted trough of 15.4 is within the ordered goal trough range of 15-20. recommend continuing current dose of 1500mg q8h and checking a trough prior to the 4th dose Pending Level: 06/21/24 at 1800 Pharmacy Service will continue to monitor and adjust dosing as required. Follow-Up Labs Follow-Up Labs: Trough: Vancomycin (06/21/24 at 1800)
[2024-06-20 21:21] VITALS: BP 136/79; PULSE 78; RESP 16; TEMP 37.2; O2SAT 97
[2024-06-21] MEDS: Vancomycin HCl 1,500 MG in 0.9% Normal Saline (500mL Bag) 500 ML 250 MG IV ×2 (02:27→11:01)
[2024-06-21] MEDS: Ibuprofen 600 MG Tablet PO ×2 (02:36→23:26)
[2024-06-21 02:42] VITALS: BP 132/78; PULSE 88; RESP 16; TEMP 36.7; O2SAT 97
--- NOTE | 2024-06-21 07:22 | PN.HOSP_ITS ---
Reason for Visit Reason for Visit: Left knee swelling Subjective Subjective Patient is a 44-year-old white male who presented to the emergency department [facility] on 06/19/2024 with a chief complaint of left knee swelling that started 2 days prior to presentation. He reported on presentation that his pain worsens with any type of movement to his left leg complained of associated symptoms including swelling of his left knee and inability to extend his knee fully. His symptoms have been progressively worsening. 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 He denies any fever or previous trauma to the joint. He has a noted history of gout in the past but that was 3 years ago and was in the toe. He did complain of some mild chills. He denied change in his bowel or bladder function and and had no saddle anesthesia. He denied history of IVDU. He denied any other painful joints. Aspiration was performed in the emergency department by the emergency department physician and orthopedic surgery was consulted. Initially was felt this was likely prepatellar infectious bursitis/cellulitis and he was placed on broad- spectrum antibiotics. CPKs were unremarkable. Patient states he feels like he is moving his leg better today. Still feels tight and swollen. Able to ambulate and can flex hip if he standing but not do straight leg raise. No other motor deficits noted in left lower extremity and is able to heel walk bilaterally. States the erythema and sensitivity has decreased in the left knee significantly. Objective Data Objective Data Vital Signs: Vital Signs Temp Pulse Resp BP Pulse Ox O2 Del Method 98.1 F 88 16 132/78 H 97 Room Air 06/21/24 02:42 06/21/24 02:42 06/21/24 02:42 06/21/24 02:42 06/21/24 02:42 06/21/24 02:42 Oxygen Delivery Method Room Air Weight: 111.13 kg Body Mass Index (BMI) 31.4 Intake & Output: Intake and Output for Last 24 Hours 06/19/24 06/20/24 06/21/24 23:59 23:59 23:59 Intake Total 590 / 590 1640 / 1640 530 / 530 Balance 590 / 590 1640 / 1640 530 / 530 Lab / Micro Data 06/20/24 06:35 06/20/24 06:35 Labs: Laboratory Results - last 24 hr 06/20/24 06:35: Sodium 142, Potassium 4.2, Chloride 115 H, Carbon Dioxide 24.0, Anion Gap 3 L, BUN 11, Creatinine 0.79, Estim Creat Clear Calc 161.56, Est GFR (MDRD) Af Amer 139, Est GFR (MDRD) Non-Af 115, BUN/Creatinine Ratio 14.0, Glucose 106, Calcium 8.8 06/20/24 17:37: Vancomycin Trough 15.4 H Micro: Microbiology 06/19/24 12:35 Fluid - Synovial (joint) Gram Stain - Final 06/19/24 12:35 Fluid - Synovial (joint) Body Fluid Culture - Preliminary No growth-Final to follow Physical Exam Const alert, oriented x3, no apparent distress, healthy appearing and well nourished; Negative for average body habitus Constitutional Narrative: Obese, middle-aged, white male, sitting on the edge of the bed, family at bedside, appears comfortable, nontoxic HEENT head/scalp atraumatic, moist oral mucous membranes and oropharynx normal Head and Scalp: normocephalic Resp normal respiratory effort, no retractions, no use of accessory muscles and clear to auscultation bilaterally Auscultation: Negative for rales, rhonchi or wheezes Cardio regular rate, regular rhythm, S1 normal heart sound, S2 normal heart sound, no murmurs, no rub and no gallops GI normal to inspection, nondistended, normoactive bowel sounds, soft to palpation and non-tender Extremity Extremity Narrative: Effusion noted over left knee with mild erythema, mild tenderness to palpation but patient states it significantly reduced, no clubbing or cyanosis, no lower extremity edema noted Neuro oriented x3 Neuro Narrative: Can get his quadriceps to fire some but minimally with isometric contraction of the quadricep, difficulty maintaining contraction of the quadricep, unable to do straight leg raise however hip flexion in standing is not impaired, able to heel walk and toe walk without any issue, no sensory deficits Speech: speech normal Psych affect normal Psych Narrative: Very pleasant, interacts appropriately Assessment & Plan Assessment/Plan (1) Weakness of left quadriceps muscle: (2) Cellulitis of left knee: (3) Prepatellar bursitis, left knee: PLAN: Plan Cellulitis of the left knee/peripatellar bursitis -Aspirate was overtly unimpressive -Cultures are negative -Continue antibiotics with ceftriaxone and vancomycin for now -Erythema has improved significantly and sensitivity has reduced but effusion remains -Lyme titers are pending -Await further Ortho input Left quadricep weakness -Will check MRI of the lumbar spine to rule out any myopathy related to nerve impingement -Lyme titers are pending -Antibiotics as above -Will need outpatient EMG/nerve conduction studies--> unable to order in the inpatient setting and will need outpatient order with outpatient follow-up -Will discuss with Ortho prior to discharge as patient does not have a primary care physician -Neuro has evaluated the patient and note is pending Elevated blood pressure -Slight elevation -If remains elevated may need to consider starting an antihypertensive with outpatient follow-up Obesity -BMI is 31.5 -Recommend weight loss -Complicates treatment, prognosis, outcomes DVT prophylaxis -Continue subcu Lovenox CODE STATUS -Full code Charges/Coding Visit Charges Inpatient E&M: 34843 Subs Hosp L2
[2024-06-21 09:37] VITALS: BP 144/84; PULSE 81; RESP 16; TEMP 36.4; O2SAT 98
[2024-06-21 10:13] VITALS: O2SAT 98
[2024-06-21] MEDS: Ceftriaxone 1 GM/50 ML BAG IV (10:15)
[2024-06-21] MEDS: 0.9% Saline Lock 10 ML Syringe IV (11:01)
[2024-06-21 11:25] VITALS: BP 141/83; PULSE 73; RESP 16; TEMP 36.1; O2SAT 98
--- NOTE | 2024-06-21 12:10 | CASEMGMT ---
KELIN WOODRUFF Assessment: Face to Face with pt for initial transition planning/care coordination assessment. RN KACY introduced self and role at [facility], pt voices understanding and consents to assessment. Pt is A&O x4 and answers all questions appropriately at this time. Pt lying in bed in no distress. Care providers, pharmacy, and demographics verified/updated. Strata: 1 Admitting Dx: Left Knee Swelling PCP: None, provided pt with list of local PCPs. Specialists: Denies Preferred Pharmacy: [facility] Insurance: [email or web address] Prescription Benefit: yes LNOK: Anastasiya Childers Living Arrangements: Pt lives with and kids in a multi-level home with several steps to enter. ADLs: Pt states I with ADLs and IADLs. Transportation: Pt drives self and denies concerns with transportation. DME: Denies HHC/SNF: Denies Hx of. Pt states no concerns with going home at time of dc. Pt states no further concerns/needs. CM to follow. Advised pt to ask CM if any further question/concerns/needs arise, voices understanding. Pt Goal: Home Plan: Home, follow plan of care. Stacey NEVILLE CM
[2024-06-21 14:00] LABS: Pathologist Comment Reviewed
[2024-06-21 14:02] LABS: Pathologist Review Reviewed
[2024-06-21 15:28] VITALS: BP 147/97; PULSE 94; RESP 16; TEMP 36.9; O2SAT 99
--- NOTE | 2024-06-21 18:53 | PCM.RX.CS ---
Consult Antibiotic Management Pharmacy has been consulted to manage selected antibiotic: Vancomycin Type of Intervention Type of Consult: Follow-up Suspected Infection Suspected Infection: Skin/Soft tissue Prior Doses of Antibiotics Prior Doses of Antibiotics Received/Current Regimen: 1500mg iv q8h Labs Labs: Sodium 142 mmol/L (136-145) 06/20/24 06:35 Potassium 4.2 mmol/L (3.5-5.1) 06/20/24 06:35 Chloride 115 mmol/L (98-107) H 06/20/24 06:35 Carbon Dioxide 24.0 mmol/L (21.0-32.0) 06/20/24 06:35 Anion Gap 3 (5-15) L 06/20/24 06:35 BUN 11 mg/dL (7-18) 06/20/24 06:35 Creatinine 0.79 mg/dL (0.70-1.30) 06/20/24 06:35 Est GFR (MDRD) Af Amer 139 mL/min (>60) 06/20/24 06:35 Est GFR (MDRD) Non-Af 115 mL/min (>60) 06/20/24 06:35 BUN/Creatinine Ratio 14.0 RATIO (10-20) 06/20/24 06:35 Glucose 106 mg/dL (74-106) 06/20/24 06:35 Vancomycin Trough 13.0 ug/mL (5.0-15.0) 06/21/24 18:03 Microbiology Microbiology: Microbiology 06/19/24 12:35 Fluid - Synovial (joint) Gram Stain - Final 06/19/24 12:35 Fluid - Synovial (joint) Body Fluid Culture - Preliminary No growth-Final to follow 06/19/24 12:35 Fluid - Synovial (joint) Anaerobic Culture - Preliminary No growth in 48 hours. Dosing Weight Weight used for dosin kg Estimated Creatinine Clearance Estimated Creatinine Clearance: 161ml/min Goal Trough Goal Trough: 15-20 mcg/mL Pharmacy Plan for Drug Dosing Pharmacy Plan for Drug Dosing: Trough today 13.0 and below desired range of 15-20mcg/ml. Recommend increasing dose to 1750mg iv q8h with new trough before 4th dose per policy. Pharmacy Service will continue to monitor and adjust dosing as required. Follow-Up Labs Follow-Up Labs: Trough: Vancomycin (06.21.24 @1830)
[2024-06-21 20:07] VITALS: BP 150/92; PULSE 94; RESP 16; TEMP 37.4; O2SAT 96
[2024-06-21] MEDS: Vancomycin HCl 1,750 MG in 0.9% Normal Saline (500mL Bag) 500 ML 250 MG IV (20:07)
--- NOTE | 2024-06-22 | NEURO.CONS ---
Assessment and Plan: Neuro Assessment/Plan JACOB BROWN is a 44 M being evaluated by Teleneurology for left leg weakness. Though exam is limited by the constraints of video there does appear to be hip flexion, knee extension and knee flexion weakness on LS, with possible subtle sensory decrement. His history and the knee pain and swelling does NOT fit with a script of diabetic amyotrophy or with sciatica (I also note that his glucoses are not consistently elevated), and there are not many processes that would cause both a local inflammatory response in the knee and near total weakness at multiple joints in the limb. I do not believe his brother's MOG Ab transverse myelitis is suggestive. WHile I must defer to Orthopedic specialists on joint pathology here, some of his symptoms would be consistent with gout. Given stated history of sciatica and tick exposures, he does warrant MRI L Spine and Lyme Ab testing. Barring findings here he should be evaluated by EMG in the outpatient setting, no earlier than 10 days from symptom onset to ensure sensitivity of test. Diagnosis: left leg weakness Plan: MRI L Spine (already ordered) Lyme Ab (already ordered) Evaluation of joint for gout and mimics per primary team Outpatient EMG no earlier than 10 days from symptom onset with outpatient neurology follow up after EMG I personally attended this patient and spent a total time of 25 minutes evaluating this patient including clinical assessment, review of chart, medical history imaging, and determining appropriate treatment and workup. Patrice Martines MD A/C Technician, [facility] Neurology HPI Consult Data Date of Consult: 06/22/24 HPI Narrative HPI Narrative: JACOB BROWN, is a 44 M who presentswith history of sciatica and gout and family history of MOG transverse myelitis (brother) who reports that 4 days ago he became week in left leg, which he localizes to left quadriceps, saying he could not elicit even a twitch of this muscle. Could not extend knee, had difficulty flexing knee, could flex hip in standing position but not in sitting position and he remarks that this is/was NOT pain-limited. Remained able to walk in a stiff-legged fashion with circumduction. Approximately 2 days after onset came to ED as he had then developed pain and swelling in left knee. Since then knee flexion has improved slightly but is still poor, and he says swelling is, if anything worse. Ortho has already evaluated. No prior episodes. No arthritis elsewhere EXCEPT left wrist pain which he believes is due to recent mechanical stress. NO history of DM, no known history of Lyme though he does have tick exposures (tick found recently, no targetoid rash). Since admission he has confirmed brother's diagnosis of MOG ab transverse myelitis following vaccine for which brother is still being treated (2 years later) with steroids. No history of IVDA. [facility] Medical History (Updated 06/19/24 @ 16:[address] Calvin Daniels MD) Cellulitis of left knee Gout COVID-19 Allergy/AdvReac Type Severity Reaction Status Date / Time No Known Allergies Allergy Verified 06/19/24 10:57 Family History (Updated 06/19/24 @ 16:[address] Calvin Daniels MD) Other Heart disease Surgical History no surgical history Social History household members: spouse Smoking Status: Never smoker alcohol intake: current alcohol intake frequency: holidays/special occasions only substance use type: does not use Vital Signs Vital Signs Vital Signs: 06/21/24 02:42 06/21/24 09:37 06/21/24 09:37 Temperature 98.1 F 97.6 F L Temperature Source Oral Oral Pulse Rate 88 81 Pulse Strength Normal (2+) Respiratory Rate 16 16 Respiratory Effort Respiratory Depth Respiratory Pattern Blood Pressure 132/78 H 144/84 H Blood Pressure Mean 96 104 Blood Pressure Source Blood Pressure Position Blood Pressure Location Pulse Ox 97 98 Oxygen Delivery Method Room Air Room Air 06/21/24 09:37 06/21/24 09:37 06/21/24 10:13 Temperature 97.6 F L Temperature Source Oral Pulse Rate 81 Pulse Strength Respiratory Rate 16 Respiratory Effort Normal Respiratory Depth Normal Respiratory Pattern Normal Blood Pressure 144/84 H Blood Pressure Mean 104 Blood Pressure Source Monitor Blood Pressure Position Semi-Fowlers Blood Pressure Location Left Arm Pulse Ox 98 98 Oxygen Delivery Method Room Air Room Air Room Air 06/21/24 11:25 06/21/24 11:25 06/21/24 14:24 Temperature 97 F L 97 F L Temperature Source Oral Oral Pulse Rate 73 73 Pulse Strength Respiratory Rate 16 16 Respiratory Effort Normal Respiratory Depth Normal Respiratory Pattern Normal Blood Pressure 141/83 H 141/83 H Blood Pressure Mean 102 102 Blood Pressure Source Monitor Blood Pressure Position Semi-Fowlers Blood Pressure Location Right Arm Pulse Ox 98 98 Oxygen Delivery Method Room Air Room Air Room Air 06/21/24 15:28 06/21/24 15:28 06/21/24 20:07 Temperature 98.4 F 98.4 F 99.3 F H Temperature Source Oral Oral Oral Pulse Rate 94 94 94 Pulse Strength Respiratory Rate 16 16 16 Respiratory Effort Respiratory Depth Respiratory Pattern Blood Pressure 147/97 H 147/97 H 150/92 H Blood Pressure Mean 113 113 111 Blood Pressure Source Monitor Monitor Blood Pressure Position Standing Semi-Fowlers Blood Pressure Location Left Arm Left Arm Pulse Ox 99 99 96 Oxygen Delivery Method Room Air Room Air Room Air 06/21/24 20:09 Temperature Temperature Source Pulse Rate Pulse Strength Respiratory Rate Respiratory Effort Normal Non-Labored Respiratory Depth Normal Respiratory Pattern Normal Blood Pressure Blood Pressure Mean Blood Pressure Source Blood Pressure Position Blood Pressure Location Pulse Ox Oxygen Delivery Method Room Air Weight Weight: 111.13 kg Body Mass Index (BMI) 31.4 EEG Results Procedure Details EEG Procedure Details: JACOB BROWN is a 44 year old M with a past medical history of , who presents for evaluation of Electroencephalogram on DATE at TIME Physical Exam Narrative Exam is over video with assistance of RN bedside. AOx4, EOMI, no facial droop, sensation intact to light touch in V1/2/3 bilaterally, no dysarthria or hypophonia, head rotation intact, strength 5/5 in SA, EE, EF, store operations associate bilaterally. Strength 5/5 HF, KE, KF, DF, PF RLE. LLE: Strength at HF 1/5 sitting, 4/5 standing and he says this is NOT due to pain limitation. KE 1/5 LS. KF 4/5 LS. DF and PF 5/5/ Light touch possibly decreased on medial side of L foot on direct comparison to RF Sharp intact but possibly decreased at L hallux on direct comparison to RS No sensory loss at knee level. Able to transition independently and to stand unaided though gait is stiff and with circumduction Lab / Micro Data 06/20/24 06:35 06/20/24 06:35 Labs: Laboratory Results - last 24 hr 06/19/24 12:35: Fl Crystal Path Review Reviewed, Synovial Path Comment Reviewed 06/21/24 18:03: Vancomycin Trough 13.0 Micro: Microbiology 06/19/24 12:35 Fluid - Synovial (joint) Gram Stain - Final 06/19/24 12:35 Fluid - Synovial (joint) Body Fluid Culture - Preliminary No growth-Final to follow 06/19/24 12:35 Fluid - Synovial (joint) Anaerobic Culture - Preliminary No growth in 48 hours. Active Medications Active Medications Active Medications: Current Medications Generic Name Dose Route Start Last Admin Trade Name Freq PRN Reason Stop Dose Admin Acetaminophen 650 mg 06/20/24 15:17 06/20/24 16:39 Acetaminophen 325 Mg Tablet PO 650 mg Q4H PRN PRN Administration Pain 1-10 or Fever Enoxaparin Sodium 40 mg 06/20/24 10:00 06/21/24 10:16 Enoxaparin 40 Mg/0.4 Ml Syringe SC Not Given DAILY TASHA Vancomycin IV-PHARMACY TO DOSE 500 mls @ 250 mls/hr 06/19/24 16:35 1 each/ Sodium Chloride IV X1 PRN Rx to Dose Protocol Ceftriaxone Sodium 1 gm in 50 mls @ 100 mls/hr 06/19/24 17:15 06/21/24 11:04 Rocephin IV Infused Q24 TASHA Infusion Sodium Chloride 250 mls @ 15 mls/hr 06/19/24 16:36 06/19/24 17:58 IV 0 mls/hr .[id number] PRN Infusion Additional IVPB Infusion Sodium Chloride 250 mls @ 15 mls/hr 06/19/24 16:36 IV .[id number] PRN Saline Flush Vancomycin HCl 1,750 mg/ 535 mls @ 250 mls/hr 06/21/24 19:00 06/21/24 22:28 Sodium Chloride IV Infused Q8H TASHA Infusion Ibuprofen 600 mg 06/19/24 18:46 06/21/24 23:26 Ibuprofen 600 Mg Tablet PO 600 mg Q6H PRN PRN Administration Pain 1-10 or Fever Melatonin 3 mg 06/19/24 16:35 Melatonin 3 Mg Tablet PO QHS PRN PRN INSOMNIA Ondansetron HCl 4 mg 06/19/24 16:35 Ondansetron 4 Mg/2 Ml Vial IV Q8H PRN PRN NAUSEA/VOMITING Oxycodone HCl 5 mg 06/19/24 18:48 Oxycodone 5 Mg Tablet PO Q4H PRN PRN Pain Score 4-10 Senna/Docusate Sodium 2 tablet 06/19/24 16:35 Senna/Docusate Sodium 1 Tablet PO BID PRN PRN Constipation Sodium Chloride 10 - 40 ml 06/19/24 16:36 06/21/24 11:01 0.9% Saline Lock 10 Ml Syringe IV 10 ml UD PRN Administration SALINE FLUSH Vancomycin Protocol 1 lab 06/22/24 17:00 Vancomycin Trough/Random Due 06/22/24 21:00 DAILY TASHA
[2024-06-22 04:00] VITALS: BP 130/83; PULSE 77; RESP 16; TEMP 36.8; O2SAT 98
[2024-06-22] MEDS: Vancomycin HCl 1,750 MG in 0.9% Normal Saline (500mL Bag) 500 ML 250 MG IV ×2 (04:02→12:58)
[2024-06-22] MEDS: 0.9% Saline Lock 10 ML Syringe IV ×2 (04:03→12:58)
[2024-06-22 07:17] LABS: Absolute Lymphocyte Count 3.63 X10^3/uL (0.83-4.51); Absolute Neutrophil Count 6.3 X10^3/uL (2.0-7.7); Basophil# 0.06 X10^3/uL; Basophil% 0.5 % (0-1); Eosinophil# 0.27 X10^3/uL; Eosinophils% 2.4 % (0-5); Hematocrit 41.5 % (40-54); Hemoglobin 13.5 g/dL (13.0-16.5); Lymphocyte # 3.63 X10^3/ul (0.83-4.51); Lymphocyte % 32.4 % (19-41); Mean Corp Hgb Conc 32.5 g/dL (32-36); Mean Corpuscular Hgb 26.9 pg (27.0-32.0); Mean Corpuscular Volume 82.8 fL (80-94); Monocyte# 0.89 X10^3/uL; Monocyte% 7.9 % (0-10); NRBC Flagged by Analyzer 0 % (0-5); Neutrophil # 6.27 X10^3/uL (2.7-7.7); Neutrophil % 56.1 % (47-70); Platelet Count 270 K/mm3 (150-450); RBC Distribution Width CV 13.5 % (11.6-14.6); RBC Distribution Width SD 40.7 fl (35.1-43.9); Red Blood Count 5.01 M/mm3 (4.6-6.2); White Blood Count 11.2 K/mm3 (4.4-11.0)
[2024-06-22 07:43] LABS: Anion Gap 7 (5-15); BUN 12 mg/dL (7-18); BUN/Creat Ratio 14.6 RATIO (10-20); Calcium,Total 9.1 mg/dL (8.5-10.1); Chloride 113 mmol/L (98-107); Creatinine, Serum 0.82 mg/dL (0.70-1.30); EST Glomerular Filtration Rate 109 mL/min (>60); Est Glom Filt Rate - Afr Amer 132 mL/min (>60); Estimated Creatinine Clearance 155.65 ml/min; Glucose 102 mg/dL (74-106); Potassium 4.1 mmol/L (3.5-5.1); Sodium Level 142 mmol/L (136-145)
[2024-06-22 10:00] VITALS: BP 136/71; PULSE 80; RESP 18; TEMP 36.6; O2SAT 98
--- NOTE | 2024-06-22 10:00 | MRI_ITS ---
STUDY: MRI LUMBAR SPINE WITH AND WITHOUT CONTRAST REASON FOR EXAM: Male, 44 years old. L LEG weakness TECHNIQUE: Standardized fat and water weighted pulse sequences were obtained in the sagittal and axial planes. 22ML IV CLARISCAN was administered for the contrast portion of the examination. COMPARISON: None FINDINGS: Normal lumbar lordosis. There is no substantial scoliosis. Normal conus medullaris that terminates at the L1 level. T12-L1: Normal endplates. Normal disc height, hydration and morphology. Normal bilateral facet joints. Normal central canal and bilateral lateral recesses. Normal bilateral intervertebral neural foramina. L1-2: Normal endplates. Normal disc height, hydration and morphology. Normal bilateral facet joints. Normal central canal and bilateral lateral recesses. Normal bilateral intervertebral neural foramina. L2-3: Normal endplates. Normal disc height, hydration and morphology. Normal bilateral facet joints. Normal central canal and bilateral lateral recesses. Normal bilateral intervertebral neural foramina. L3-4: Normal endplates. Diffuse disc desiccation with mild posterior disc space narrowing and annular bulging and mild central canal stenosis. Mild facet joint hypertrophy. Mild fluid distention of facet joints. Mild bilateral foraminal stenosis with posterior nerve root impingement demonstrated on the left. L4-5: Normal endplates. Diffuse disc desiccation with mild posterior disc space narrowing and slight annular bulging. Superimposed left paracentral disc protrusion causing severe left lateral recess stenosis and compression of descending nerve root and contributing to mild central canal stenosis. Normal right lateral recess. Slight retrolisthesis of L4 and L5 of 2 mm.. Normal bilateral facet joints. Mild to moderate right foraminal stenosis with nerve root compression. Normal left neural foramen. L5-S1: Normal endplates. Normal disc height, hydration and morphology. Normal bilateral facet joints. Normal central canal and bilateral lateral recesses. Normal bilateral intervertebral neural foramina. Normal visualized sacral ala. Normal visualized paraspinous soft tissue structures. No marrow edema or fracture or compression deformity seen. There is no evidence of infection or primary or metastatic disease. No abnormal enhancement is demonstrated. MRI/Spine Lumbar W/WO Contrast IMPRESSION: 1. Multilevel degenerative changes, as described above. Electronically Signed: Jey Verdin MD at 13:20 EDT ,
--- NOTE | 2024-06-22 10:47 | NURSING ---
pt remains off unit, unable to get scheduled antb-will give when he returns
[2024-06-22] MEDS: Ceftriaxone 1 GM/50 ML BAG IV (10:58)
[2024-06-22] MEDS: Indomethacin 25 MG Capsule PO (11:03)
[2024-06-22 11:43] VITALS: O2SAT 96
--- NOTE | 2024-06-22 14:54 | PN.ORTHO_ITS ---
Objective Data Objective Data Vital Signs: Vital Signs Temp Pulse Resp BP Pulse Ox O2 Del Method 97.8 F 80 18 136/71 H 96 Room Air 06/22/24 10:00 06/22/24 10:00 06/22/24 10:00 06/22/24 10:00 06/22/24 11:43 06/22/24 11:43 Oxygen Delivery Method Room Air Weight: 244 lb 15.995 oz Body Mass Index (BMI) 31.4 Intake & Output: Intake and Output for Last 24 Hours 06/20/24 06/21/24 06/22/24 23:59 23:59 23:59 Intake Total 1640 / 1640 2295 / 2295 1858 / 1858 Balance 1640 / 1640 2295 / 2295 1858 / 1858 Lab / Micro Data 06/22/24 06:41 06/22/24 06:41 Labs: Laboratory Results - last 24 hr 06/21/24 18:03: Vancomycin Trough 13.0 06/22/24 06:41: WBC 11.2 H, RBC 5.01, Hgb 13.5, Hct 41.5, MCV 82.8, MCH 26.9 L, MCHC 32.5, RDW Std Deviation 40.7, RDW Coeff of Dario 13.5, Plt Count 270, MPV 9.0, Immature Gran % (Auto) 0.700, Neut % (Auto) 56.1, Lymph % (Auto) 32.4, [place] % (Auto) 7.9, Eos % (Auto) 2.4, Baso % (Auto) 0.5, Absolute Neuts (auto) 6.3, Absolute Lymphs (auto) 3.63, Nucleated RBC % 0, Sodium 142, Potassium 4.1, C hloride 113 H, Carbon Dioxide 23.0, Anion Gap 7, BUN 12, Creatinine 0.82, Estim Creat Clear Calc 155.65, Est GFR (MDRD) Af Amer 132, Est GFR (MDRD) Non-Af 109, BUN/Creatinine Ratio 14.6, Glucose 102, Calcium 9.1 Micro: Microbiology 06/19/24 12:35 Fluid - Synovial (joint) Gram Stain - Final 06/19/24 12:35 Fluid - Synovial (joint) Body Fluid Culture - Preliminary No growth-Final to follow 06/19/24 12:35 Fluid - Synovial (joint) Anaerobic Culture - Preliminary No growth in 48 hours. Radiography Diagnostic Testing: Radiology Impression Lumbar Spine MRI 06/22/24 10:00 IMPRESSION: 1. Multilevel degenerative changes, as described above. Electronically Signed: Jey Verdin MD at 13:20 EDT Reading Location ID and State: [facility] / [place] , Service support , Assessment & Plan Assessment/Plan (1) Weakness of left quadriceps muscle: PLAN: As discussed today on the phone and in person with Dr. Perez and Dr. Candelaria, plan is to follow-up as an outpatient for the lumbar spine disc herniation as well as Dr. Candelaria to arrange for prescriptions outpatient indomethacin and antibiotics for the knee and follow-up with myself for the knee this week and Dr. Perez for the back, so we can arrange for outpatient nerve conduction study/EMG as well.
--- NOTE | 2024-06-22 14:57 | PCM.DC.SUM ---
Providers Date of Admission: 06/19/24 Date of Discharge: 06/22/24 Primary Care Physician: No Primary Care Phys Consultations 06/19/24 16:35 Consult: Orthopedics Routine Consulting Provider: Gavin Vera Reason for Consult: left knee swelling EMERGENT Consult: No Notified: Yes Date Notified: 06/19/24 Time Notified: 15:56 Method of Notification: ED Physician Initiated 06/21/24 07:19 Consult: Tele-Neurology Routine Consulting Provider: [facility] Reason for Consult: L L weakness EMERGENT Consult: No MD Notified: Yes Date Notified: 06/21/24 Time Notified: 07:20 Method of Notification: Answering Service Comments:: per ortho recs Nursing Unit Staff Notify [facility] of Tele-Neurology Consult: Yes 06/21/24 16:09 Neurology [Consult: Tele-Neurology] Routine Consulting Provider: [facility] Reason for Consult: left quads weakness EMERGENT Consult: No Notified: Yes Date Notified: 06/21/24 Time Notified: 16:09 Method of Notification: Answering Service Nursing Unit Staff Notify [facility] of Tele-Neurology Consult: Yes Reason For Visit: LEFT KNEE SWELLING Diagnosis Discharge Diagnosis (1) Weakness of left quadriceps muscle: Status: Acute Code(s): M62.81 - Muscle weakness (generalized) (2) Acute pain of left knee: Status: Acute Code(s): M25.562 - Pain in left knee Medications at Discharge Home Medications amoxicillin 875 mg-potassium clavulanate 125 mg tablet 1 tab PO BID #14 tabs 06/22/24 indomethacin 25 mg capsule 25 mg PO TIDCM #21 caps 06/22/24 oxycodone 5 mg tablet 5 mg PO Q4H PRN PRN Pain Score 4-10 5 days #30 tabs 06/22/24 Hospital Course Operations None Procedures - (MRI lumbar spine/x-ray knee/hip and pelvic x-ray/knee aspirate) Summary of Care Provided Minutes Spent on Discharge: 41 Weight / BMI Weight Weight: 111.13 kg Body Mass Index (BMI) 31.4 ABG / Lab / Microbiology Data 06/22/24 06:41 06/22/24 06:41 Laboratory: Laboratory Results - last 24 hr 06/21/24 18:03: Vancomycin Trough 13.0 06/22/24 06:41: WBC 11.2 H, RBC 5.01, Hgb 13.5, Hct 41.5, MCV 82.8, MCH 26.9 L, MCHC 32.5, RDW Std Deviation 40.7, RDW Coeff of Dario 13.5, Plt Count 270, MPV 9.0, Immature Gran % (Auto) 0.700, Neut % (Auto) 56.1, Lymph % (Auto) 32.4, [place] % (Auto) 7.9, Eos % (Auto) 2.4, Baso % (Auto) 0.5, Absolute Neuts (auto) 6.3, Absolute Lymphs (auto) 3.63, Nucleated RBC % 0, Sodium 142, Potassium 4.1, Chloride 113 H, Carbon Dioxide 23.0, Anion Gap 7, BUN 12, Creatinine 0.82, Estim Creat Clear Calc 155.65, Est GFR (MDRD) Af Amer 132, Est GFR (MDRD) Non-Af 109, BUN/Creatinine Ratio 14.6, Glucose 102, Calcium 9.1 Microbiology: Microbiology 06/19/24 12:35 Fluid - Synovial (joint) Gram Stain - Final 06/19/24 12:35 Fluid - Synovial (joint) Body Fluid Culture - Preliminary No growth-Final to follow 06/19/24 12:35 Fluid - Synovial (joint) Anaerobic Culture - Preliminary No growth in 48 hours. Radiography Diagnostic Testing: Radiology Impression Lumbar Spine MRI 06/22/24 10:00 IMPRESSION: 1. Multilevel degenerative changes, as described above. Electronically Signed: Jey Verdin MD at 13:20 EDT Reading Location ID and State: [address] [place] [address] , Service support , D/C Instructions Discharge Diet: No restrictions Discharge Activity: Return to Normal Activity Return to work on: 06/26/24 Meaningful Use Info Meaningful Use Meaningful Use Diagnoses (Choose all that apply): None applicable Ischemic Stroke Statin Dosing Therapy Reference: STATIN DOSE THERAPY REFERENCE: * Patients > 75 years receive moderate or high dose statin therapy. * Patients 75 years or YOUNGER should receive HIGH intensity statin dose unless contraindicated. You will be required to document reason for non-treatment if statin daily dose does not meet guidelines. HIGH DOSE STATIN THERAPY DAILY Atorvastatin > than or = to 40 mg Rosuvastatin > than or = to 20 mg Amlodipine + Atorvastatin > than or = to 2.5/40 mg Ezetimibe + Simvastatin 10/80 mg Simvastatin 80mg Discharge Plan Admission Admit Date/Time: 06/19/24 15:50 Primary Reason for Your Visit: L knee pain/Quadriceps weakness Attending Provider: Debbie Candelaria Primary Care Provider: Care Physician,No Primary Consulting Providers: Gavin Vera; Calivn Daniels; Azael Paz; Jayson Knutson; Anders Mcgowan; Abril Campos; Suzanna Jeong; Theresa Weinstein; Preet Yao; Alexus Arango; Ghassan Omalley; Jamari Henriquez; Julio César Terrazas; Geneva Howell; Manuel Huang; Mervat Cabello; Johnson Osborn; Elmira Kovacs; Patrice Martines; Calli Schultz; Leonard Hamilton; Ketty Candelaria; Taurus Bernard Instructions Forms: Work Excuse Additional Instructions / Restrictions: 1. Please find a primary care physician 2. Please take the indomethacin with food and never on an empty stomach with plenty of water 3. Please call doctors below tomorrow to set up appointments to be seen by the end of the week Discharge Orders/Prescriptions Prescriptions: New indomethacin 25 mg Capsule 25 mg PO TIDCM Qty: 21 0RF oxycodone 5 mg Tablet 5 mg PO Q4H PRN PRN (Reason: Pain Score 4-10) 5 Days Qty: 30 0RF amoxicillin-pot clavulanate 875-125 mg tablet 1 tab PO BID Qty: 14 0RF Referrals / Follow Up: Brendan Perez MD [Med Staff - Active Staff] - See Referral Note (Call tomorrow and make an appointment to be seen at the end of the week) Gavin Vera MD [Med Staff - Active Staff] - See Referral Note (Call tomorrow and set up appointment to be seen at the end of the week) Care Physician,No Primary [Primary Care Provider] - NOT,DEFINED [Non-Staff] - Disposition Disposition (needs filled in before D/C Order can be placed): Home, Self Care Charges/Coding Visit Charges Inpatient E&M: 17059 Disch Hosp >30min
[2024-06-22 16:11] LABS: Lyme Scn Total Ab w/Rflx Negative (Negative)
--- NOTE | 2024-06-22 16:32 | PHA.DC_ITS ---
Pharmacy [place] Med Reconciliation Pharmacy Service has performed discharge medication reconciliation for this patient. Medication education papers prepared, patient D/C'ed before I was able to funeral prearrangement counselor. Medications reviewed. The patient's discharge medication list was reviewed for discrepancies and discrepancies were resolved. Medications at Discharge Home Medications amoxicillin 875 mg-potassium clavulanate 125 mg tablet 1 tab PO BID #14 tabs 06/22/24 indomethacin 25 mg capsule 25 mg PO TIDCM #21 caps 06/22/24 oxycodone 5 mg tablet 5 mg PO Q4H PRN PRN Pain Score 4-10 5 days #30 tabs 06/22/24
== END 2024-06-22 16:01 | disposition home or self-care (01) | DRG 603 ==
LOC: ED 15:35 → MS3 16:04
PROVIDERS: Internal Medicine; Orthopaedic Surgery Sports Medicine; Admitting Provider Hospitalist; Emergency Provider Emergency Medicine; Visit Provider Internal Medicine
DX: L03.116 Cellulitis of left lower limb (principal); E66.811 Obesity, class 1; Z68.31 Body mass index [BMI] 31.0-31.9, adult; M70.42 Prepatellar bursitis, left knee; M62.81 Muscle weakness (generalized); Z86.16 Personal history of COVID-19
CPT/HCPCS: 36415; 72120; 72158; 73502; 73560; 80048; 80202; 82550; 84550; 85025; 85652; 86140; 86618; 87070; 87075; 87205; 89050; 89051; 89060; 97161; 99283; A9575; J7040; J7050; A4216

== ENCOUNTER → 2024-07-28 | Outpatient (CLI) | payer OTHER, SELFPAY ==
--- NOTE | 2024-07-28 13:06 | NEURO ---
NCS and/or EMG Patient Report Ordering Doctor: Gavin Vera DATE OF SERVICE: 07/28/24 Zach presents for for electrodiagnostic testing of the left lower limb. He reports a recent history of left knee pain and swelling. Electrodiagnostic findings: Left peroneal motor nerve demonstrates normal distal latency, amplitude and conduction velocity. Left tibial motor responses within normal limits. Normal left peroneal and left tibial F?wave. Normal left sural and left superficial peroneal responses. Needle EMG testing was performed the left lower limb. All muscles tested showed no evidence of denervation with normal motor unit action potentials. Electrodiagnostic impression: This is a normal electrodiagnostic study of the left lower limb. There is no electrodiagnostic evidence for peripheral neuropathy or lumbosacral radiculopathy. Multi Select Codes Neurology Neurology Interp Codes: 14488-05 Musc test done w/n test comp (interp) and 83776-55 Nrv cndj tst 5-6 studies (interp)
== END | disposition home or self-care (01) ==
PROVIDERS: Referring Provider Orthopaedic Surgery Sports Medicine; Visit Provider Orthopaedic Surgery Sports Medicine
DX: M62.81 Muscle weakness (generalized) (principal)
CPT/HCPCS: 95886; 95909

== ENCOUNTER 2024-08-03 08:30 | Outpatient (RCR) | payer OTHER, SELFPAY ==
--- NOTE | 2024-07-05 11:19 | HP.PTEVAL_ITS ---
Patient's Visit Information Visit Information Visit Information: JACOB BROWN is a 44 year old M referred to Physical Therapy by Dr. Brendan Perez MD with a diagnosis of L Jumper's knee, L quad weakness. Date of Evaluation: 07/02/24 Physical Therapist: Michele Paredes DPT Visit Plan Frequency: 1x/Week Duration: 4 Weeks Plan: 1) quad stretching 2) quad strengthening 2) eccentric quad strengthening to assist with remodeling patellar tendon. Subjective Subjective: Pt. is here today for his initial evaluation with diagnosis of L jumpers knee, L quad weakness. Pt. reports waking up in the morn om 06/17/24. Pt. reports having increased swelling eventually to the point where he could not move his knee. He did go into the ER. He had an MRI of his back with some disc issues, but did not show correlating issues. Pt. reports over the last few days his quad strength has started to come back. He reports continued weakness, but improved. He is also having pain at the anterior portion of his knee with squatting, and stairs. Pt. is hopeful to reduce symptoms in order to get back to all work and recreational activities without limitations. Pain L knee: Pain Intensity (Out of 10): 0 Pain Intensity Range: 0 and 1 Objective Objective: POSTURE: Pt. has good posture in stance. No major abnormalities noted. PALPATION: Pt. has some tenderness with firm pressure to patellar tendon. No i ssues with PAs throughout lumbar spine. NEURO: Pt. has normal sensation in BLEs. Pt. has 2+ DTR of B achilles and patellar reflexes. ROM: Pt. has normal ROM of lumbar spine without issues. Pt. does have some pain with end range quad stretch and end range knee flexon on L side. Nothing on R side. MMT: R knee ext 94.5, flexion 51.2#; hip: flexion L knee knee: ext 28.2#, flex 47.8# GAIT: normal gait pattern no issues STAIRS: mild increase in L knee with descending. + elys test Pain with squatting and single leg squatting. Special Tests L/S Slump test left side: Negative L/S Slump test right side: Negative L/S Left Straight Leg Raise: Negative L/S Right Straight Leg Raise: Negative L Knee Nevaeh - Meniscus: Negative L Knee Yaz - ACL: Negative L Knee Posterior Drawer - PCL: Negative L Knee Valgus - MCL: Negative L Knee Varus - LCL: Negative L Knee Patellar Grind - PFS: Negative Balance/Special Test Scores Lower Extremity Functional Score: 38 Goals Goal 1:: LTG: Pt. to be I with HEP. Goal Time Frame: 4-6 Weeks Goal 2:: STG: Pt. to ambulate with normal gait pattern without increase in L knee pain. Goal Time Frame: 2 Weeks Goal 3:: LTG: Pt. to have increased L quad strength symmetrical to R side. Goal Time Frame: 4-6 Weeks Goal 4:: LTG: Pt. to resume all work activities without L knee issues. Goal Time Frame: 4-6 Weeks Goal 5:: LTG: Pt. to have increased quad length indicated by negative Elys test. Goal Time Frame: 4-6 Weeks Rehabilitation Potential Physical Therapy Diagnosis: Pt. has signs and symptoms consistent with L patellar tendinitis. Pt. has marked weakness, patellar pain and quad tightness. He would benefit from PT to address the above limitations progressing back to all work and recreational activities without limitations. Rehabilitation Potential: Excellent Anticipated Interventions Patient/Client Instruction: Educate patient on: Condition, Plan of Care, Risk Factors and Benefits of Fitness Program For the Purpose of:: To improve decision making, To facilitate caregiver knowledge, To improve self management, To prevent re-injury, To improve ability to perform tasks related to life management and To improve tolerance to ADL's Therapeutic Exercise to Include: Strength training, Power training, Postural training, Flexibilty training, Passive ROM and Active ROM For the Purpose of:: To decrease pain, To increase ROM, To improve nutrient delivery to tissue and To increase oxygenation perfusion Text: Thank you for the opportunity to evaluate your patient. For Medicare and Medicare HMO plans, please review the plan of care and approve it. It will need to be FAXED BACK to us at [phone] for Medicare purposes. For Medicare only, by signing this I certify the plan of care. Please let me know if there are questions or concerns regarding this plan of care. Physician Signature: Date:
--- NOTE | 2024-08-03 11:58 | HP.PTDCSUM ---
Discharge Summary D/C summary: It has been my pleasure to treat JACOB BROWN referred by Dr. Brendan Perez MD, with the diagnosis of L Jumper's knee, L quad weakness for a total of 2 visit(s). Discharge Date: 08/03/24 Please see the following information for a summary of their discharge status. Subjective Subjective: Pt arrives today after doing his exercises for 3 weeks or so. Pt. reports minimal to no pain. He has been able to run without issues. No issues at work as well. Pain L knee: Pain Intensity (Out of 10): 0 Overall Improvement % Improvement: 95 Objective Objective/Function: Pt. has full ROM without increase in symptoms. Very slight quad tightness. Pt. has full strength without increase in symptoms. Mild tension at L patellar tendon with max force with knee extension. Normal squat techniques without issues. STAIRS: Pt. was able to run up them without pain. GAIT: normal. Overall Jacob is going very well. I want him to continue with his strengthening as able. Pt. consents. Pt. to be DC from PT at this point in time. Goals Goal 1:: LTG: Pt. to be I with HEP. Goal Progress: Goal Met Goal 2:: STG: Pt. to ambulate with normal gait pattern without increase in L knee pain. Goal Progress: Goal Met Goal 3:: LTG: Pt. to have increased L quad strength symmetrical to R side. Goal Progress: Goal Met Goal 4:: LTG: Pt. to resume all work activities without L knee issues. Goal Progress: Goal Met Goal 5:: LTG: Pt. to have increased quad length indicated by negative Elys test. Goal Progress: Goal Met Plan Plan: Pt. to be DC. D/C Information Discharge Comments: Pt. has met all goals and will be DC from PT at this point in time. d/c sentence: If there are questions or concerns regarding this patient's physical therapy, please feel free to call me at [phone]. Thank you for the referral of this patient. Sincerely, Michele Perez Sipos, DPT Balance/Gait/Functional tests Balance/Special Test Scores Lower Extremity Functional Score: 80 Improvement % Improvement: 95
== END 2024-08-03 19:00 | disposition home or self-care (01) ==
LOC: PT 08:30
PROVIDERS: Referring Provider Orthopaedic Surgery Orthopaedic Surgery of the Spine; Visit Provider Orthopaedic Surgery Orthopaedic Surgery of the Spine
DX: M76.52 Patellar tendinitis, left knee (principal)
CPT/HCPCS: 97161; 97530

== ENCOUNTER → 2024-08-18 | Outpatient (CLI) | payer OTHER, SELFPAY ==
--- NOTE | 2024-08-18 11:20 | RAD_ITS ---
STUDY: X-RAY - LEFT KNEE REASON FOR EXAM: Male, 44 years old. Pain, swelling, warmth. TECHNIQUE: 3 views of the left knee. COMPARISON: Left knee radiographs dated 06/19/2024. FINDINGS: Normal visualized distal femur. Normal visualized proximal tibia and fibula. Normal proximal tibiofibular articulation. There is no demonstrated fracture. Normal medial femorotibial compartment. Normal lateral femorotibial compartment. Normal patellofemoral articulation. There is no significant joint effusion. There is persistent prepatellar soft tissue swelling. RAD/Knee 3 Views IMPRESSION: Persistent prepatellar soft tissue swelling. No demonstrated fracture. Electronically Signed: Sylvester Candelaria MD at 12:09 EST ,
== END | disposition home or self-care (01) ==
LOC: MTRAD 11:10
PROVIDERS: Referring Provider Physician Assistant; Visit Provider Physician Assistant
DX: M25.562 Pain in left knee (principal)
CPT/HCPCS: 73562

== ENCOUNTER → 2025-03-24 | Outpatient (CLI) | payer OTHER, SELFPAY | END | disposition home or self-care (01) | LOC: LABSPEC 09:07 | PROVIDERS: Visit Provider Nurse Practitioner Family | DX: J02.9 Acute pharyngitis, unspecified (principal) | CPT/HCPCS: 87070 ==